=== PATIENT | female | born 1940 | race Caucasian/White ===

== ENCOUNTER 2016-09-18 15:46 | Inpatient (IN) | payer OTHER ==
[~2016-09-18] VITALS: Ht 152.4 cm; Wt 66.3 kg
[2016-09-18 15:59] VITALS: Ht 152.4 cm; Wt 66.3 kg
[2016-09-18] MEDS ORDERED: morphine 4 MG/ML VIAL IV STA (16:30)
[2016-09-18] MEDS ORDERED: NITROGLYCERIN 2% 1 GM OINT PKT TD STA (16:30)
[2016-09-18] MEDS ORDERED: NITROGLYCERIN (SL) 0.4 MG TAB SL PRN (16:30)
[2016-09-18] MEDS ORDERED: ASPIRIN 325 MG TAB PO STA (16:30)
[2016-09-18] MEDS ORDERED: ONDANSETRON 4 MG INJ IV STA (16:30)
[2016-09-18 16:46] LABS: ADD SCAN DIFF NO
[2016-09-18 16:47] LABS: BASOPHILS % 0.4 % (0.0-2.0); EOSINOPHILS # 0.1 10^3/ul (0.0-0.5); EOSINOPHILS % 1.3 % (0.0-7.0); HEMOGLOBIN 15.5 g/dl (12.0-16.0); LYMPHOCYTES # 2.1 10^3/ul (0.8-2.9); LYMPHOCYTES % 23.7 % (15.0-51.0); MEAN CORPUSCULAR HEMOGLOBIN 33.6 pg (29.0-33.0); MEAN PLATELET VOLUME 11.6 fl (7.4-10.4); MONOCYTE # 0.4 10^3/ul (0.3-0.9); MONOCYTES % 4.4 % (0.0-11.0); NEUTROPHIL # 6.3 10^3/ul (1.6-7.5); PLATELET COUNT 161 10^3/UL (140-415); RED BLOOD COUNT 4.61 10^6/ul (4.20-5.40); RED CELL DISTRIBUTION WIDTH 13.6 % (11.5-14.5)
[2016-09-18 17:02] LABS: INR 1.04; PROTIME 13.6 Sec (12.2-14.2); PT RATIO 1.1
[2016-09-18 17:20] LABS: ALBUMIN 4.1 g/dl (3.3-4.9); CHLORIDE 109 mmol/L (97-110); SODIUM 145 mmol/L (135-144)
[2016-09-18 17:21] LABS: POTASSIUM 3.4 mmol/L (3.5-5.1)
[2016-09-18 17:23] LABS: ALANINE AMINOTRANSFERASE 26 IU/L (13-69); ALBUMIN/GLOBULIN RATIO 1.32; ALKALINE PHOSPHATASE 81 IU/L (42-121); ANION GAP 18 (8-16); ASPARTATE AMINO TRANSFERASE 27 IU/L (15-46); BILIRUBIN,INDIRECT 1.4 mg/dl (0-1.1); BILIRUBIN,TOTAL 1.4 mg/dl (0.2-1.3); BLOOD UREA NITROGEN 29 mg/dl (7-20); CARBON DIOXIDE 21 mmol/L (21-31); CREATININE 0.72 mg/dl (0.44-1.00); GLUCOSE 100 mg/dl (70-220); TOTAL PROTEIN 7.2 g/dl (6.1-8.1)
[2016-09-18 17:24] LABS: CALCIUM 9.4 mg/dl (8.4-10.2)
[2016-09-18 17:36] LABS: TROPONIN-I < 0.012 ng/ml (0.00-0.12)
[2016-09-18] MEDS ORDERED: LOSA25TA5 PO (18:02)
[2016-09-18] MEDS ORDERED: METO50TA16 PO (18:02)
[2016-09-18] MEDS ORDERED: APIX2.5T PO (18:03)
[2016-09-18] MEDS ORDERED: ATOR20TA38 PO (18:03)
[2016-09-18] MEDS ORDERED: ASPI-664 PO (18:03)
[2016-09-18] MEDS ORDERED: DIGO250T16 PO (18:04)
--- NOTE | 2016-09-18 19:13 | RADRPT ---
PROCEDURE: Chest x-ray CLINICAL INDICATION: Chest pain TECHNIQUE: Chest single view COMPARISON: None FINDINGS: There is left chest single lead pacemaker. Moderate cardiomegaly and an sclerotic aortic calcificat ion is seen. Mild interstitial CHF is identified. There is small left pleural effusion and linear left lower lobe atelectasis. Bones are diffusely osteopenic. IMPRESSION: 1. Cardiomegaly with mild interstitial CHF and small left pleural effusion. 2. Left lower lobe atelectasis. 3. Atherosclerotic aortic calcification. 4. Pacemaker. 5. Osteopenia RPTAT: HH .Mina Mcghee MD, MD Date Time Electronically viewed and signed by .Mina Mcghee MD, on 09/18/2016 19:12 .W/
[2016-09-18] MEDS ORDERED: DILTIAZEM 25 MG INJ IV ONE (19:30)
[2016-09-18] MEDS ORDERED: DILTIAZEM-D5W 125MG/125ML DRIP 125 ML IV SCH (19:30)
[2016-09-18] MEDS ORDERED: FUROSEMIDE 40 MG INJ IV ONE (20:00)
--- NOTE | 2016-09-18 20:14 | ERA ---
ER Documentation Chief Complaint Date/Time DATE: 09/18/16 TIME: 20:09 Chief Complaint ABD PAIN SINCE THIS AM WITH N/V HPI This is a 76-year-old female who is here with her family. The patient is a very poor historian due to some mild dementia. The daughter at bedside thinks that her mom is having some stomach pain. The patient however says she is having some chest pain and some difficulty breathing. There is been no vomiting diarrhea no fever no cough. Is very difficult to get the patient to answer my questions. She describes the pain as a pressure in her chest but says no radiation ROS All systems reviewed and are negative except as per history of present illness. Medications Home Meds Reported Medications Digoxin* (Digox*) 250 Mcg Tablet, 0.25 MG PO DAILY, TAB 09/18/16 Aspirin* (Aspirin* EC) 81 Mg Tablet.dr, 81 MG PO DAILY, TAB 09/18/16 Apixaban* (Eliquis*) 2.5 Mg Tablet, 2.5 MG PO DAILY, TAB 09/18/16 Atorvastatin Calcium* (Atorvastatin Calcium*) 20 Mg Tablet, 20 MG PO QHS, #30 TAB 09/18/16 Metoprolol Succinate* (Toprol XL*) 50 Mg Tab.er.24h, 50 MG PO DAILY, #30 TAB 09/18/16 Losartan Potassium* (Losartan Potassium*) 25 Mg Tablet, 25 MG PO DAILY, TAB 09/18/16 Allergies Allergies: Coded Allergies: No Known Allergy (Unverified , 09/18/16) PMhx/Soc Medical and Surgical Hx: Unable to obtain Hx Alcohol Use: No Hx Substance Use: No Hx Tobacco Use: No Smoking Status: Never smoker FmHx Family History: No coronary disease Physical Exam Vitals Vital Signs Date Time Temp Pulse Resp B/P Pulse Ox O2 Delivery O2 Flow Rate FiO2 09/18/16 19:25 127 100 100 09/18/16 16:54 Nasal Cannula 2 09/18/16 15:59 95.4 92 18 134/81 95 Physical Exam Const: Well-developed, well-nourished Head: Atraumatic, normocephalic Eyes: Normal Conjunctiva, PERRLA, EOMI, normal sclera, no nystagmus ENT: Normal External Ears, Nose and Mouth, moist mucus membranes. Neck: Full range of motion. No meningismus, no lymphadenopathy. Resp: Clear to auscultation bilaterally, no wheezing, rhonchi, rales Cardio: Irregular rhythm no murmurs, S1 S2 present Abd: Soft, non tender x 4, non distended. Normal bowel sounds, no guarding or rebound, no pulsitile abdominal masses or bruits Skin: No petechiae or rashes, no ecchymosis , no maculopapular rash Back: No midline or flank tenderness Ext: No cyanosis, or edema, FROM x 4, normal inspection, neurovascularly intact x 4 Neur: Awake and alert, seems somewhat confused STR 09/15 x 4, sensation intact x 4, no focal findings, cerebellum intact Psych: Normal Mood and Affect, flat Result Diagram: 09/18/16 1630 09/18/16 1630 Results 24 hrs Laboratory Tests Test 09/18/16 16:10 09/18/16 16:30 B-Type Natriuretic Peptide 6390PG/ML White Blood Count 9.010^3/ul Red Blood Count 4.6110^6/ul Hemoglobin 15.5g/dl Hematocrit 47.0% Mean Corpuscular Volume 102.0fl Mean Corpuscular Hemoglobin 33.6pg Mean Corpuscular Hemoglobin Concent 33.0g/dl Red Cell Distribution Width 13.6% Platelet Count 00034^3/UL Mean Platelet Volume 11.6fl Neutrophils % 70.0% Lymphocytes % 23.7% Monocytes % 4.4% Eosinophils % 1.3% Basophils % 0.4% Nucleated Red Blood Cells % 0.0/100WBC Neutrophils # 6.310^3/ul Lymphocytes # 2.110^3/ul Monocytes # 0.410^3/ul Eosinophils # 0.110^3/ul Basophils # 0.010^3/ul Nucleated Red Blood Cells # 0.010^3/ul Prothrombin Time 13.6Sec Prothrombin Time Ratio 1.1 INR International Normalized Ratio 1.04 Activated Partial Thromboplast Time 32.0Sec Sodium Level 145mmol/L Potassium Level 3.4mmol/L Chloride Level 109mmol/L Carbon Dioxide Level 21mmol/L Anion Gap 18 Blood Urea Nitrogen 29mg/dl Creatinine 0.72mg/dl Glucose Level 100mg/dl Calcium Level 9.4mg/dl Total Bilirubin 1.4mg/dl Direct Bilirubin 0.00mg/dl Indirect Bilirubin 1.4mg/dl Aspartate Amino Transf (AST/SGOT) 27IU/L Alanine Aminotransferase (ALT/SGPT) 26IU/L Alkaline Phosphatase 81IU/L Troponin I < 0.012ng/ml Total Protein 7.2g/dl Albumin 4.1g/dl Globulin 3.10g/dl Albumin/Globulin Ratio 1.32 Current Medications Medications (Trade) Dose Ordered Sig/Christoph Route PRN Reason Start Time Stop Time Status Last Admin Dose Admin Aspirin (Aspirin) 325 mg ONCE STAT PO 09/18/16 16:30 09/18/16 16:32 DC 09/18/16 16:45 Nitroglycerin (Nitroglycerin 2% Oint) 1 inch ONCE STAT TD 09/18/16 16:30 09/18/16 16:32 DC 09/18/16 16:46 Nitroglycerin (Nitroglycerin (Sl Tab) 0.4 Mg) 1 tab Q5M UP TO 3 DOSES PRN SL CHEST PAIN 09/18/16 16:30 Morphine Sulfate (morphine) 4 mg ONCE STAT IV 09/18/16 16:30 09/18/16 16:32 DC 09/18/16 16:46 Ondansetron HCl (Zofran Inj) 4 mg ONCE STAT IV 09/18/16 16:30 09/18/16 16:32 DC 09/18/16 16:43 Diltiazem HCl 20 mg 20 mg ONCE ONCE IV 09/18/16 19:30 09/18/16 19:31 DC 09/18/16 19:29 Diltiazem HCl (Cardizem-D5W 125 Mg/125 ml Drip) 125 ml @ 0 mls/hr Q0M IV 09/18/16 19:30 09/18/16 20:01 Furosemide (Lasix) 40 mg ONCE ONCE IV 09/18/16 20:00 09/18/16 20:01 DC 09/18/16 19:59 Procedures/MDM ROCEDURE: Chest x-ray CLINICAL INDICATION: Chest pain TECHNIQUE: Chest single view COMPARISON: None FINDINGS: There is left chest single lead pacemaker. Moderate cardiomegaly and an sclerotic aortic calcification is seen. Mild interstitial CHF is identified. There is small left pleural effusion and linear left lower lobe atelectasis. Bones are diffusely osteopenic. IMPRESSION: 1. Cardiomegaly with mild interstitial CHF and small left pleural effusion. 2. Left lower lobe atelectasis. 3. Atherosclerotic aortic calcification. 4. Pacemaker. 5. Osteopenia RPTAT: HH .Mina Mcghee MD, Date Time Electronically viewed and signed by .Mina Mcghee MD, on 09/18/2016 19:12 .W/ CC: REHAN RICO DO The nurse came to get me to the patient's having a difficult time breathing. Went to the room the patient was in atrial fib with RVR with a heart rate of 145 and having some difficult respirations. Lung sounds now sounded very coarse and wet. I called RT and we put her on BiPAP at 15/5 She is given a Cardizem bolus 20 mg and followed by drip. Heart rate went from 145 down to 80 Vital signs are currently stable Chest x-ray shows volume overload with an elevated BNP on her lab work. She is given Lasix IV per We will admit the patient for A. fib with RVR and congestive heart failure Critical Care Time: 35 minutes Treatments/Evaluations: Close monitoring and treatment of unstable vital signs, cardiorespiratory, and neurologic status, while maintaining tight balance of fluid, respiratory, and cardiac interventions. This time includes discussing the case with the patient and the patient's family. This time does not include all procedures stated elsewhere in this record. This time also includes reviewing old records, labs and radiological studies. This time includes examining and re-examining the patient. Additionally, this time also includes arranging care with admitting and consulting physicians. EKG: Rate/Rhythm: Atrial fibrillation with rapid ventricular response heart rate 139, inverted T waves laterally QRS, ST, QT: NORMAL AR, QRS, QT] Impression: A. fib with RVR Departure Diagnosis: Primary Impression: Atrial fibrillation with RVR Additional Impression: Congestive heart failure Qualified Code: I50.9 - Acute congestive heart failure, unspecified congestive heart failure type Condition: Fair REHAN RICO DO September 18, 2016 20:14
[2016-09-18] MEDS ORDERED: ONDANSETRON 4 MG INJ IV PRN (20:30)
[2016-09-18] MEDS ORDERED: ACETAMINOPHEN 325 MG TAB PO PRN (20:30)
[2016-09-18] MEDS ORDERED: LORAZEPAM 2 MG INJ IV ONE ×2 (22:00)
[2016-09-19] VITALS (14 sets, daily range): BP systolic 103–181; BP diastolic 52–107; PULSE 22–128; RESP 16–28
[2016-09-19] MEDS ORDERED: ONDANSETRON 4 MG INJ IV PRN (01:30)
[2016-09-19] MEDS ORDERED: FUROSEMIDE 40 MG INJ IV ONE (02:30)
[2016-09-19 03:52] LABS: ADD SCAN DIFF NO
[2016-09-19 04:19] LABS: ALBUMIN 3.9 g/dl (3.3-4.9); ALBUMIN/GLOBULIN RATIO 1.25; BILIRUBIN,INDIRECT 1.5 mg/dl (0-1.1); BILIRUBIN,TOTAL 1.5 mg/dl (0.2-1.3); CALCIUM 9.2 mg/dl (8.4-10.2); CHOL/HDL RATIO 2.4 RATIO; CREATININE 0.92 mg/dl (0.44-1.00); MAGNESIUM 1.9 mg/dl (1.7-2.5); PHOSPHORUS 5.7 mg/dl (2.5-4.9); POTASSIUM 3.7 mmol/L (3.5-5.1)
--- NOTE | 2016-09-19 04:40 | HP ---
Date/Time of Note Date/Time of Note DATE: 09/19/16 TIME: 04:17 Assessment/Plan VTE Prophylaxis VTE Prophylaxis Intervention: heparin Lines/Catheters IV Catheter Type (from Nrsg): Peripheral IV Assessment/Plan Assessment/Plan 1. Afib with RVR - cont Cardizem gtt. Pt is currently lethargic and as such unable to take oral meds. Will have Speech/swallow eval in am - will resume home meds, including Eliquis, aspirin and Beta-lennox when pt able to take oral meds. if not, will place her on Lovenox, treatment dose - Will obtain 2D-echo and place a Cardiology consult 2. Chest pain - first trop neg and EKG with no ST-T wave abnormalities - will trend trops - pt was given aspirin in ER. - See above 3. Mild CHF - obtain 2D-echo - IV Lasix - Cardiology consult 4. HTN: BP within goal - cont cardizem gtt for Afib, which will also address BP 5. ?AMS - pt with likely Dementia. Will speak with family in am to determine pt's baseline mental status - will obtain CT head as needed - Physical therapy given lethargy 6. Mild Hypernatremia - monitor for now 7. Mild Hypokalemia - replete HPI/ROS Admit Date/Time Admit Date/Time September 18, 2016 at 20:17 Hx of Present Illness Patient is a 76-year-old female with hx of HTN, pacemaker and likely Afib and dementia who was brought in by family for abdominal pain and generalized weakness. Patient is a very poor historian ans such such information is mainly gathered from ER physician. Per daughter, pt was c/o abd pain, but reportedly, pt c/o pressure-like chest pain when she was in ER. She is currently lethargic and unable to give meaningful history. While in ER, pt was found to be in Afib and was given 20mg of IV Cardizem and then was started on Cardizem gtt. she also received Ativan. Lab showed Na 145, K 3.4, BUN 29 with cr of 0.7. BMP 6400 and first trop was neg. CXR showed Cardiomegaly with mild interstitial CHF and small left pleural effusion and left lower lobe atelectasis. Patient was placed on Bipap, but has been removing it. . PMH/Family/Social Past Medical History Medical History: hypertension, other (likely afib and mild dementia) Past Surgical History Past Surgical Hx: other (pacemaker placement) Social History Alcohol Use: other (unknown) Smoking Status: Unknown if ever smoked Drug Use: other (unknown) Exam/Review of Systems Vital Signs Vitals Vital Signs Date Time Temp Pulse Resp B/P Pulse Ox O2 Delivery O2 Flow Rate FiO2 09/19/16 03:49 98.1 100 23 115/58 94 09/18/16 22:57 Nasal Cannula 5.0 09/18/16 19:25 100 Exam Constitutional: other (not oriented, lethargic) Head: atraumatic, normocephalic Eyes: PERRL Respiratory: other (minimal crackles anteriorly) Cardiovascular: irregular rhythm Gastrointestinal: other (non-distended, positive bowel sound), soft Extremities: normal pulses Labs Result Diagram: 09/18/16 1630 09/18/16 1630 Medications Medications Current Medications Aspirin (Halfprin) 81 mg DAILY PO ; Start 09/19/16 at 09:00 Atorvastatin Calcium (Lipitor) 20 mg QHS PO ; Start 09/19/16 at 21:00 Digoxin (Digoxin) 0.25 mg DAILY@13 PO ; Start 09/19/16 at 13:00 Losartan Potassium (Cozaar) 25 mg DAILY PO ; Start 09/19/16 at 09:00 Metoprolol Succinate (Toprol Xl) 50 mg DAILY PO ; Start 09/19/16 at 09:00 Apixaban 2.5 mg 2.5 mg DAILY PO ; Start 09/19/16 at 09:00 Diltiazem HCl (Cardizem-D5W 125 Mg/125 ml Drip) 125 ml @ 0 mls/hr Q0M IV ; Start 09/19/16 at 01:30 Ondansetron HCl (Zofran Inj) 4 mg Q6H PRN IV NAUSEA AND/OR VOMITING; Start 09/19 at 01:30 Heparin Sodium (Porcine) (Heparin (5000 Units/0.5 ml)) 5,000 unit Q12 SC ; Start 09/19/16 at 09:00; Status CANDIE EUGENE MD September 19, 2016 04:29
[2016-09-19 04:48] LABS: THYROID STIMULATING HORMONE 4.07 MIU/L (0.465-4.680)
[2016-09-19 06:20] LABS: ABNORMAL IP MESSAGE 1; BASOPHILS % 0.1 % (0.0-2.0); HEMATOCRIT 45.1 % (37.0-47.0); HEMOGLOBIN 14.8 g/dl (12.0-16.0); LYMPHOCYTES # 0.4 10^3/ul (0.8-2.9); MEAN CORPUSCULAR HGB CONC 32.8 g/dl (32.0-37.0); MEAN CORPUSCULAR VOLUME 100.7 fl (82.0-101.0); MEAN PLATELET VOLUME 12.2 fl (7.4-10.4); MONOCYTE # 0.7 10^3/ul (0.3-0.9); MONOCYTES % 3.7 % (0.0-11.0); NEUTROPHIL # 16.8 10^3/ul (1.6-7.5); NEUTROPHILS % 93.8 % (39.0-77.0); PLATELET COUNT 149 10^3/UL (140-415); RED BLOOD COUNT 4.48 10^6/ul (4.20-5.40); RED CELL DISTRIBUTION WIDTH 13.6 % (11.5-14.5); WHITE BLOOD COUNT 17.9 10^3/ul (4.8-10.8)
[2016-09-19] MEDS: DILTIAZEM-D5W 125MG/125ML DRIP 125 ML IV SCH ×2 (06:24→16:21)
[2016-09-19] MEDS ORDERED: APIXABAN 5 MG TABLET PO SCH ×2 (09:00)
[2016-09-19] MEDS ORDERED: LOSARTAN 25 MG TAB PO SCH (09:00)
[2016-09-19] MEDS ORDERED: METOPROLOL (XL) 50 MG TAB PO SCH (09:00)
[2016-09-19] MEDS ORDERED: HEPARIN 5,000 UNIT/0.5 ML VIAL SC SCH (09:00)
[2016-09-19] MEDS ORDERED: ASPIRIN (EC) 81 MG TAB PO SCH (09:00)
[2016-09-19] MEDS ORDERED: LIDOCAINE 1% (MPF) 5 ML VIAL SC ONE ×2 (11:30→13:00)
[2016-09-19] MEDS ORDERED: SOD CHLORIDE 0.9% 250 ML IV ONE (11:30)
[2016-09-19] MEDS ORDERED: HALOPERIDOL 5 MG INJ IM ONE (11:30)
--- NOTE | 2016-09-19 11:32 | PN ---
Date/Time of Note Date/Time of Note DATE: 09/19/16 TIME: 11:20 Assessment/Plan VTE Prophylaxis VTE Prophylaxis Intervention: LMWH Lines/Catheters IV Catheter Type (from Nrs): Peripheral IV Urinary Cath still in place: Yes Reason Cath still needed: urinary retention Assessment/Plan Chief Complaint/Hosp Course S: Events noted. Dehydrated, poor IV access, agitated. I spoke with Carmen ( patient's daughter) w therapist occupational assistance and she agrees to picc. O: A fib RVR rt fairly stable at present. PE No pallor JVD adenopathy Irregular, no murmur rub gallop Diminished breath sounds bilaterally BS + nt nd, no r/r/g No edema A/P 1. A. fib w RVR. Rt control/ ivf/Lovenox. Stable, mod stable. 2. Dementia w delirium 3. False positive trop; due to demand ischemia. Ro ACS-medical management. 4. Pacemaker status 5. Hypertension 6. Deconditioning 7. Hypovolemia/ dehydration 8. Dysphagia. Will try to avoid feeding tubes as it will not provide any benefit of quality of life. Problems: Exam/Review of Systems Vital Signs Vitals Vital Signs Date Time Temp Pulse Resp B/P Pulse Ox O2 Delivery O2 Flow Rate FiO2 09/19/16 08:44 85 09/19/16 08:22 2.0 09/19/16 08:17 98.6 16 110/55 93 09/19/16 02:00 Nasal Cannula 09/18/16 19:25 100 Intake and Output 09/18/16 09/18/16 09/19/16 15:00 23:00 07:00 Intake Total 50 ml Output Total 700 ml Balance -650 ml Results Result Diagram: 09/19/16 0527 09/19/16 0330 Results 24 hrs Laboratory Tests Test 09/18/16 16:10 09/18/16 16:30 09/19/16 03:30 09/19/16 05:27 B-Type Natriuretic Peptide 6390 H White Blood Count 9.0 17.9 #H Red Blood Count 4.61 4.48 Hemoglobin 15.5 14.8 Hematocrit 47.0 45.1 Mean Corpuscular Volume 102.0 H 100.7 Mean Corpuscular Hemoglobin 33.6 H 33.0 Mean Corpuscular Hemoglobin Concent 33.0 32.8 Red Cell Distribution Width 13.6 13.6 Platelet Count 161 149 Mean Platelet Volume 11.6 H 12.2 H Neutrophils % 70.0 93.8 H Lymphocytes % 23.7 2.0 L Monocytes % 4.4 3.7 Eosinophils % 1.3 0.0 Basophils % 0.4 0.1 Nucleated Red Blood Cells % 0.0 0.0 Neutrophils # 6.3 16.8 H Lymphocytes # 2.1 0.4 L Monocytes # 0.4 0.7 Eosinophils # 0.1 0.0 Basophils # 0.0 0.0 Nucleated Red Blood Cells # 0.0 0.0 Prothrombin Time 13.6 Prothrombin Time Ratio 1.1 INR International Normalized Ratio 1.04 Activated Partial Thromboplast Time 32.0 Sodium Level 145 H 143 Potassium Level 3.4 L 3.7 Chloride Level 109 113 H Carbon Dioxide Level 21 15 L Anion Gap 18 H 19 H Blood Urea Nitrogen 29 H 33 H Creatinine 0.72 0.92 Glucose Level 100 201 # Calcium Level 9.4 9.2 Total Bilirubin 1.4 H 1.5 H Direct Bilirubin 0.00 0.00 Indirect Bilirubin 1.4 H 1.5 H Aspartate Amino Transf (AST/SGOT) 27 44 Alanine Aminotransferase (ALT/SGPT) 26 25 Alkaline Phosphatase 81 87 Troponin I < 0.012 0.123 *H Total Protein 7.2 7.0 Albumin 4.1 3.9 Globulin 3.10 3.10 Albumin/Globulin Ratio 1.32 1.25 Phosphorus Level 5.7 H Magnesium Level 1.9 Triglycerides Level 111 Cholesterol Level 131 LDL Cholesterol, Calculated 56 HDL Cholesterol 53 Cholesterol/HDL Ratio 2.4 Thyroid Stimulating Hormone (TSH) 4.070 Hemoglobin A1c 5.4 Medications Medications Current Medications Aspirin (Halfprin) 81 mg DAILY PO ; Start 09/19/16 at 09:00 Atorvastatin Calcium (Lipitor) 20 mg QHS PO ; Start 09/19/16 at 21:00 Digoxin (Digoxin) 0.25 mg DAILY@13 PO ; Start 09/19/16 at 13:00 Losartan Potassium (Cozaar) 25 mg DAILY PO ; Start 09/19/16 at 09:00 Metoprolol Succinate (Toprol Xl) 50 mg DAILY PO ; Start 09/19/16 at 09:00 Apixaban 2.5 mg 2.5 mg DAILY PO ; Start 09/19/16 at 09:00; Status Future Hold Diltiazem HCl (Cardizem-D5W 125 Mg/125 ml Drip) 125 ml @ 0 mls/hr Q0M IV ; Start 09/19/16 at 01:30 Ondansetron HCl (Zofran Inj) 4 mg Q6H PRN IV NAUSEA AND/OR VOMITING; Start 09/19 at 01:30 Heparin Sodium (Porcine) (Heparin (5000 Units/0.5 ml)) 5,000 unit Q12 SC ; Start 09/19/16 at 09:00; Status Future Hold Lorazepam (Ativan) 0.5 mg Q6H PRN IV ANXIETY; Start 09/19/16 at 11:00 Haloperidol (Haldol) 5 mg ONCE ONCE IM ; Start 09/19/16 at 11:30; Stop 09/19/16 at 11:31; Status UNV Lidocaine (Xylocaine 1% (Mpf)) 5 ml ONCE ONCE SC ; Start 09/19/16 at 11:30; Stop 09/19/16 at 11:31; Status UNV BRIGIDA KELLY MD September 19, 2016 11:30
[2016-09-19] MEDS ORDERED: ENOXAPARIN 100 MG/ML SYG SC SCH (12:00)
[2016-09-19] MEDS ORDERED: FAMOTIDINE 20 MG TAB PO SCH (12:00)
[2016-09-19] MEDS ORDERED: ENOXAPARIN 80 MG/0.8 ML SYG SC SCH (12:39)
[2016-09-19] MEDS ORDERED: DIGOXIN 0.25 MG TAB PO SCH (13:00)
[2016-09-19] MEDS ORDERED: LORAZEPAM 2 MG INJ IM ONE (14:00)
--- NOTE | 2016-09-19 15:45 | RADRPT ---
PROCEDURE: US guidance for PICC line CLINICAL INDICATION: PICC line placement TECHNIQUE: Multiple real-time images were acquired of the patient's arm utilizing a high resolutio n transducer. This was performed by the PICC line nurse for venous access. COMPARISON: None FINDINGS: Ultrasound guidance for PICC line placement. IMPRESSION: Ultrasound guidance for PICC line placement. RPTAT: AA .Lawrence Patrick MD, MD Date Time Electronically viewed and signed by .Lawrence Patrick MD, on 09/19/2016 15:45 .S/
[2016-09-19] MEDS: SOD CHLORIDE 0.9% 1,000 ML IV SCH (16:37)
--- NOTE | 2016-09-19 18:05 | RADRPT ---
Echocardiogram Report Patient Name: MELINA ROMEO Gender: Female Date: 1940 Study Date: 19-Sep-2016 Consulting Technical Director: Glory Kendrick [facility] Location: [id number] Ref. Physician: CANDIE FAROOQ Quality: Adequate Procedures: Transthoracic echocardiogram with complete 2D, M-Mode, and doppler examination. Indications: Atrial Fibrillation. 2D/M Mode Doppler Measurement Value Normal Ranges Measurement Value Normal Ranges LVIDd 2D 5.9 3.5 - 5.6 cm AV Peak Aneesh 1.7 m/sec LVIDs 2D 4.9 2.1 - 4.1 cm AV Peak PG 11.0 mmHg FS 2D 17.4 % AI Peak PG 47.0 mmHg LVPWd 2D 0.9 0.6 - 1.1 cm AI Peak Aneesh 3.4 m/sec IVSd 2D 0.9 0.6 - 1.1 cm AI PHT 475.0 msec IVS/LVPW 2D 1.1 LVOT Peak Aneesh 1.3 m/sec AoR Diam 2D 3.6 2.0 - 3.7 cm LVOT Peak PG 7.0 mmHg LA/Ao 2D 1 0 - 1 MV E Peak Aneesh 1.1 m/sec EDV 2D 209.0 cm3 MV Decel Time 102 msec ESV 2D 118.0 cm3 TR Peak Aneesh 3.5 m/sec LA Dimen 2D 4.4 2.3 - 4.0 cm TR Peak PG 49.0 mmHg RVSP 64.0 mmHg Findings Left Ventricle: Normal left ventricular cavity size. Mild enlargement of left ventricle cavity. Severe global left ventricular systolic dysfunction. Ejection fraction is visually estimated at 2530 %. Right Ventricle: Normal right ventricular size. Normal right ventricular systolic function. Left Atrium: There is moderate enlargement of left atrium. Right Atrium: The right atrium is normal in size. Mitral Valve: Mitral valve leaflets appear mildly thickened. Mild mitral annular calcification. Moderate to severe mitral valve regurgitation. The regurgitation jet is eccentrically directed which may underestimate the severity of mitral regurgitation. Aortic Valve: No hemodynamically significant aortic stenosis by doppler. Aortic cusps appear mildly calcified. Moderate aortic valve regurgitation. Tricuspid Valve: Normal appearance of the tricuspid valve. Estimated peak PA systolic pressure 64 mmHg. There is mild tricuspid regurgitation. Pulmonic Valve: Normal pulmonic valve appearance. There is trace pulmonic regurgitation. Pericardium: Trivial pericardial effusion. Left pleural effusion seen. Aorta: Normal aortic root. IVC: Dilated IVC without respiratory collapse consistent with elevated right atrial pressure. Conclusions 1.The left ventriclar cavity is mildly dilated. The left ventricular systolic function is severely reduced. 2.Estimated left ventricular ejection fraction of 25-30%. 3.Moderate to severe mitral regurgitation. 4.Moderate aortic regurgitation. 5.Moderate left atrial enlargement. 6.Pulmonary hypertension with estimated RVSP of 64 mmHg. Electronically Signed By: Arthur Coffey 19-Sep-2016 18:05:10 -0700 Patient Name: MELINA ROMEO Study Date: 19-Sep-2016 [id number]
--- NOTE | 2016-09-19 20:07 | CONS ---
Date/Time of Note Date/Time of Note DATE: 09/19/16 TIME: 19:47 Assessment/Plan Assessment/Plan Chief Complaint/Hosp Course Assessment: Atrial fibrillation (likely chronic) with rapid ventricular response Single-chamber permanent pacemaker - incomplete data Acute on likely chronic systolic heart failure Cardiomyopathy, LVEF 25-30% - ischemic vs valvular vs tachycardia-induced Valvular heart disease - moderate to severe mitral regurgitation, moderate aortic regurgitation NSTEMI - likely type 2, conservative management Hypertension History of stroke Acute on chronic encephalopathy Leukocytosis - rule out infection Recommendations: -echocardiogram showed LVEF 25-30%, moderate to severe MR, moderate AR, moderate LAE, RVSP 64 mmHg -patient currently unable to tolerate oral medications due to altered mental status -continue diltiazem drip -digoxin 0.25mg IV daily, check digoxin level -can decrease Lovenox to DVT prophylaxis dose for now, resume on Eliquis when tolerating orals -Lasix 40mg IV daily Problems: Consultation Date/Type/Reason Admit Date/Time September 18, 2016 at 20:17 Type of Consultation: Cardiology Reason for Consultation atrial fibrillation with rapid ventricular response Hx of Present Illness The patient is a 76 year-old female who presents with abdominal pain, generalized weakness, and confusion. She is unable to provide any meaningful history due to her altered mental status. She is noted to be in atrial fibrillation with a rapid ventricular response and decompensated heart failure. Her troponin is mildly elevated up to 0.152. She has been placed on a diltiazem drip. Unable to obtain review of systems due to patient's altered mental status. Past Medical History Atrial fibrillation Single-chamber permanent pacemaker Hypertension History of stroke Incomplete data Past Surgical History Unknown Family History Significant Family History: other (unknown) Social History Unknown Exam/Review of Systems Vital Signs Vitals Vital Signs Date Time Temp Pulse Resp B/P Pulse Ox O2 Delivery O2 Flow Rate FiO2 09/19/16 17:49 128 09/19/16 15:54 99.3 16 181/107 93 09/19/16 08:22 2.0 09/19/16 08:00 Nasal Cannula 09/18/16 19:25 100 Intake and Output 09/18/16 09/18/16 09/19/16 14:59 22:59 06:59 Intake Total 50 ml Output Total 700 ml Balance -650 ml Exam Constitutional: non-verbal, No alert, No oriented Psych: confusion, No nl mood/affect, No no complaints Head: atraumatic, normocephalic Eyes: nl conjunctiva, nl lids ENMT: nl external ears & nose, nl nasal mucosa & septum Neck: jvd, non-tender, supple Respiratory: crackles/rales, No wheezing Cardiovascular: irregular rhythm Gastrointestinal: soft, tender Musculoskeletal: nl extremities to inspection Extremities: No clubbing, No cyanosis, No edema Neurological: No nl mental status, No nl speech Results Result Diagram: 09/19/16 0527 09/19/16 0330 Results 24 hrs Laboratory Tests Test 09/19/16 03:30 09/19/16 05:27 09/19/16 11:20 09/19/16 15:40 Sodium Level 143 Potassium Level 3.7 Chloride Level 113 H Carbon Dioxide Level 15 L Anion Gap 19 H Blood Urea Nitrogen 33 H Creatinine 0.92 Glucose Level 201 # Calcium Level 9.2 Phosphorus Level 5.7 H Magnesium Level 1.9 Total Bilirubin 1.5 H Direct Bilirubin 0.00 Indirect Bilirubin 1.5 H Aspartate Amino Transf (AST/SGOT) 44 Alanine Aminotransferase (ALT/SGPT) 25 Alkaline Phosphatase 87 Troponin I 0.123 *H 0.152 *H Total Protein 7.0 Albumin 3.9 Globulin 3.10 Albumin/Globulin Ratio 1.25 Triglycerides Level 111 Cholesterol Level 131 LDL Cholesterol, Calculated 56 HDL Cholesterol 53 Cholesterol/HDL Ratio 2.4 Thyroid Stimulating Hormone (TSH) 4.070 White Blood Count 17.9 #H Red Blood Count 4.48 Hemoglobin 14.8 Hematocrit 45.1 Mean Corpuscular Volume 100.7 Mean Corpuscular Hemoglobin 33.0 Mean Corpuscular Hemoglobin Concent 32.8 Red Cell Distribution Width 13.6 Platelet Count 149 Mean Platelet Volume 12.2 H Neutrophils % 93.8 H Lymphocytes % 2.0 L Monocytes % 3.7 Eosinophils % 0.0 Basophils % 0.1 Nucleated Red Blood Cells % 0.0 Neutrophils # 16.8 H Lymphocytes # 0.4 L Monocytes # 0.7 Eosinophils # 0.0 Basophils # 0.0 Nucleated Red Blood Cells # 0.0 Hemoglobin A1c 5.4 Bedside Glucose 134 Medications Medications Current Medications Atorvastatin Calcium (Lipitor) 20 mg QHS PO ; Start 09/19/16 at 21:00 Metoprolol Succinate (Toprol Xl) 50 mg DAILY PO ; Start 09/19/16 at 09:00 Apixaban 2.5 mg 2.5 mg DAILY PO ; Start 09/19/16 at 09:00; Status Future Hold Diltiazem HCl (Cardizem-D5W 125 Mg/125 ml Drip) 125 ml @ 0 mls/hr Q0M IV Last administered on 09/19/16 16:21; Admin Dose 15 MLS/HR; Start 09/19/16 at 01:30 Ondansetron HCl (Zofran Inj) 4 mg Q6H PRN IV NAUSEA AND/OR VOMITING; Start 09/19 at 01:30 Lorazepam (Ativan) 0.5 mg Q6H PRN IV ANXIETY; Start 09/19/16 at 11:00 Enoxaparin Sodium (Lovenox) 65 mg Q12 SC ; Start 09/19/16 at 12:39 Famotidine 20 mg 20 mg DAILY PO ; Start 09/20/16 at 12:00 Sodium Chloride (NS) 1,000 ml @ 75 mls/hr [id number] IV Last administered on 16:37; Admin Dose 75 MLS/HR; Start 09/19/16 at 16:30 MAKI WARE MD September 19, 2016 19:59
[2016-09-19] MEDS ORDERED: hydrALAzine 20 MG INJ IV PRN (20:30)
[2016-09-19] MEDS: DIGOXIN 500 MCG INJ IV SCH (20:47)
[2016-09-19] MEDS: FUROSEMIDE 40 MG INJ IV SCH (20:48)
[2016-09-19] MEDS ORDERED: ATORVASTATIN 20 MG TAB PO SCH (21:00)
[2016-09-19 21:51] LABS: ADD UMIC YES; URINE BILIRUBIN (Dip) NEGATIVE (NEGATIVE); URINE BLOOD (Dip) 3+ (NEGATIVE); URINE COLOR LT. YELLOW (YELLOW); URINE GLUCOSE (Dip) NEGATIVE (NEGATIVE); URINE KETONES (Dip) NEGATIVE (NEGATIVE); URINE LEUKOCYTE ESTERASE (Dip) 1+ (NEGATIVE); URINE NITRITE (Dip) NEGATIVE (NEGATIVE); URINE TOTAL PROTEIN (Dip) TRACE (NEGATIVE); URINE UROBILINOGEN (Dip) 0.2 E.U./dL (0.1-1.0)
[2016-09-19 22:09] LABS: BACTERIA,URINE MANY; SQUAMOUS EPITHELIAL CELL,UR MODERATE
[2016-09-20] VITALS (51 sets, daily range): BP systolic 46–159; BP diastolic 15–137; PULSE 68–114; RESP 14–38
[2016-09-20] MEDS: DILTIAZEM-D5W 125MG/125ML DRIP 125 ML IV SCH ×2 (00:38→11:36)
[2016-09-20] MEDS: LORAZEPAM 2 MG INJ IV PRN ×2 (03:20→17:58)
[2016-09-20] MEDS: SOD CHLORIDE 0.9% 1,000 ML IV SCH (05:33)
[2016-09-20 07:36] LABS: ADD SCAN DIFF NO
[2016-09-20 07:50] LABS: ABNORMAL IP MESSAGE 1; BASOPHILS % 0.2 % (0.0-2.0); HEMATOCRIT 45.8 % (37.0-47.0); HEMOGLOBIN 15.1 g/dl (12.0-16.0); LYMPHOCYTES # 0.4 10^3/ul (0.8-2.9); LYMPHOCYTES % 6.4 % (15.0-51.0); MEAN CORPUSCULAR HEMOGLOBIN 33.3 pg (29.0-33.0); MEAN CORPUSCULAR VOLUME 101.1 fl (82.0-101.0); MEAN PLATELET VOLUME 12.2 fl (7.4-10.4); MONOCYTE # 0.4 10^3/ul (0.3-0.9); MONOCYTES % 6.2 % (0.0-11.0); NEUTROPHIL # 4.9 10^3/ul (1.6-7.5); NEUTROPHILS % 86.8 % (39.0-77.0); PLATELET COUNT 113 10^3/UL (140-415); RED BLOOD COUNT 4.53 10^6/ul (4.20-5.40); RED CELL DISTRIBUTION WIDTH 14.1 % (11.5-14.5); WHITE BLOOD COUNT 5.6 10^3/ul (4.8-10.8)
[2016-09-20 08:02] LABS: ALBUMIN 3.1 g/dl (3.3-4.9); ALBUMIN/GLOBULIN RATIO 1.06; BILIRUBIN,INDIRECT 2.5 mg/dl (0-1.1); BILIRUBIN,TOTAL 2.5 mg/dl (0.2-1.3); CALCIUM 8.7 mg/dl (8.4-10.2); CREATININE 1.22 mg/dl (0.44-1.00); MAGNESIUM 1.9 mg/dl (1.7-2.5); PHOSPHORUS 4.1 mg/dl (2.5-4.9); POTASSIUM 3.8 mmol/L (3.5-5.1)
[2016-09-20 08:14] LABS: TROPONIN-I 0.23 ng/ml (0.00-0.12)
[2016-09-20 08:31] LABS: THYROID STIMULATING HORMONE 4.97 MIU/L (0.465-4.680)
[2016-09-20] MEDS ORDERED: ENOXAPARIN 40 MG/0.4 ML SYG SC SCH (09:00)
--- NOTE | 2016-09-20 09:37 | RADRPT ---
PROCEDURE: XR Chest AP portable CLINICAL INDICATION: Possible pneumonia TECHNIQUE: An AP portable radiograph of the chest was submitted. COMPARISON: 09/18/2016 FINDINGS: Support Hardware: None Cardiovascular: A permanent pacemaker and a bipolar liter stable in positioning. The heart remains moderately enlarged with left atrial predominance. The aorta appears atherosclerotic while the delia pheral pulmonary vasculature is upper normal. Lung Lilly: Increasing atelectasis and possibly infiltrate projects to the heart with in the left l ower lobe and increasing discoid atelectasis is seen at the right lung base. Pleural Spaces: The left costophrenic angle is obscured such that a small pleural fluid accumulation . Can not be excluded. No pneumothorax is evident. Osseous Structures: The suboptimally visualized osseous elements are grossly intact. Soft Tissues: The soft tissues appear unremarkable. IMPRESSION: 1. The permanent pacemaker and bipolar liter stable in positioning and there is again moderate card iomegaly with increasing prominence of the left atrium. Aorta is atherosclerotic and the pulmonary vasculature is upper normal. 2. Worsening atelectasis and possibly infiltrate within the left lower lobe with increasing discoid atelectasis at the right lung base. 3. A small left pleural fluid accumulation can again not be excluded. Physician Karla Date Time Electronically viewed and signed by Physician Karla on 09/20/2016 09:36 /
[2016-09-20] MEDS: FUROSEMIDE 40 MG INJ IV SCH (10:18)
[2016-09-20] MEDS ORDERED: LEVALBUTEROL (NEB) 1.25 MG/0.5 ML AMP HHN PRN (12:00)
[2016-09-20] MEDS ORDERED: FAMOTIDINE 20 MG TAB PO SCH (12:00)
[2016-09-20 13:33] LABS: AADO2 Arterial 590.3 mmHg (7.0-24.0); Allen Test ACCEPTAB; Arterial Base Excess -9.8 mmol/L (-3.0-3); Arterial COHb 0.3 % (0.0-3.0); Arterial Fraction of Oxyhgb 96.8 % (93.0-99.0); Arterial HCO3 12.3 mmol/L (22.0-26.0); Arterial MetHb 0.3 % (0.0-1.5); Arterial Total Hemglobin 15.7 g/dl (12.0-18.0); MODE MASK - NRB
--- NOTE | 2016-09-20 14:02 | PN ---
Date/Time of Note Date/Time of Note DATE: 09/20/16 TIME: 13:56 Assessment/Plan VTE Prophylaxis VTE Prophylaxis Intervention: LMWH Lines/Catheters IV Catheter Type (from Nrsg): Peripheral IV Urinary Cath still in place: Yes Reason Cath still needed: urinary retention, terminal illness/intractable pain Assessment/Plan Chief Complaint/Hosp Course S: Events noted. Dehydrated, poor IV access, agitated. I spoke with Carmen ( patient's daughter) w life claims examiner assistance and she agrees to picc. 09/20 events noted. Agitated, fighting with nursing staff. Required Ativan at 3 AM. This late afternoon lethargic/obtunded. Bp low. Cardizem drip stopped. She is presently arousable/ mumbling and moaning ~at her baseline, no family at bedside. Concerning her right arm weakness as well. O: A fib RVR rt fairly stable at present. low sbp PE No pallor JVD adenopathy droop Irregular, no murmur rub gallop Diminished breath sounds bilaterally BS + nt nd, no r/r/g No edema; cool limbs Neuro: Nonfocal present A/P 1. A. fib w RVR. Rt control/ ivf/Lovenox. Stable, mod stable. 2. Dementia w delirium 3. False positive trop; due to demand ischemia. Ro ACS-medical management. 4. Pacemaker status 5. Htn 6. Deconditioning 7. Hypovolemia/ dehydration 8. Dysphagia. Will try to avoid feeding tubes as it will not provide any benefit of quality of life. 9. Acute encephalopathy. Try fluids/ fix blood pressure. 10. Cardiomyopathy ischemic. EF=25. Poor prognosis. Consult palliative care talk to speak with family later. 11. Hypoxia/ CHF. Treat heart rate. 11. Left deficits? MRI when stable. Problems: Exam/Review of Systems Vital Signs Vitals Vital Signs Date Time Temp Pulse Resp B/P Pulse Ox O2 Delivery O2 Flow Rate FiO2 09/20/16 12:34 56 34 95 Nasal Cannula 6.0 09/20/16 11:51 99.4 99/58 09/18/16 19:25 100 Intake and Output 09/19/16 09/19/16 09/20/16 15:00 23:00 07:00 Intake Total 1200 ml Output Total 750 ml 500 ml Balance -750 ml 700 ml Results Result Diagram: 09/20/1662109/20/16621 Results 24 hrs Laboratory Tests Test 09/19/16 15:40 09/19/16 21:30 09/20/16 06:22 09/20/16 11:39 Bedside Glucose 134 94 Urine Color LT. YELLOW Urine Clarity SL HAZY Urine pH 5.0 Urine Specific [place] 1.020 Urine Ketones NEGATIVE Urine Nitrite NEGATIVE Urine Bilirubin NEGATIVE Urine Urobilinogen 0.2 E.U./dL Urine Leukocyte Esterase 1+ H Urine Microscopic RBC 10-25 Urine Microscopic WBC 10-25 Urine Squamous Epithelial Cells MODERATE Urine Bacteria MANY Urine Hemoglobin 3+ H Urine Glucose NEGATIVE Urine Total Protein TRACE White Blood Count 5.6 # Red Blood Count 4.53 Hemoglobin 15.1 Hematocrit 45.8 Mean Corpuscular Volume 101.1 H Mean Corpuscular Hemoglobin 33.3 H Mean Corpuscular Hemoglobin Concent 33.0 Red Cell Distribution Width 14.1 Platelet Count 113 #L Mean Platelet Volume 12.2 H Neutrophils % 86.8 H Lymphocytes % 6.4 L Monocytes % 6.2 Eosinophils % 0.0 Basophils % 0.2 Nucleated Red Blood Cells % 0.0 Neutrophils # 4.9 Lymphocytes # 0.4 L Monocytes # 0.4 Eosinophils # 0.0 Basophils # 0.0 Nucleated Red Blood Cells # 0.0 Sodium Level 145 H Potassium Level 3.8 Chloride Level 116 H Carbon Dioxide Level 19 L Anion Gap 14 Blood Urea Nitrogen 49 #H Creatinine 1.22 H Glucose Level 114 # Hemoglobin A1c 5.3 Calcium Level 8.7 Phosphorus Level 4.1 Magnesium Level 1.9 Total Bilirubin 2.5 H Direct Bilirubin 0.00 Indirect Bilirubin 2.5 H Aspartate Amino Transf (AST/SGOT) 79 H Alanine Aminotransferase (ALT/SGPT) 39 Alkaline Phosphatase 62 Troponin I 0.230 *H Total Protein 6.0 #L Albumin 3.1 L Globulin 2.90 Albumin/Globulin Ratio 1.06 Vitamin B12 Level 658 Thyroid Stimulating Hormone (TSH) 4.970 H Digoxin Level 0.6 L Test 09/20/16 12:46 09/20/16 12:47 Bedside Glucose 102 Blood Gas Specimen Source Blood arterial Arterial Blood Date Drawn 09/20/2016 1:20:44 PM Arterial Blood pH (Temp corrected) 7.399 Arterial Blood pCO2 (Temp correct) 20.4 L Arterial Blood pO2 (Temp corrected) 102.3 H Arterial Blood HCO3 12.3 L Arterial Blood Base Excess -9.8 L Arterial Blood Oxygen Saturation 97.4 Shayan Test ACCEPTAB Arterial Blood Gas Puncture Site Right Radial Arterial Blood Carboxyhemoglobin 0.3 Arterial Blood Methemoglobin 0.3 Blood Gas A-a O2 Differential 590.3 H Oxyhemoglobin Percent 96.8 Total Hemoglobin 15.7 Blood Gas Temperature 37.0 Blood Gas Modality MASK - NRB FiO2 100.0 Blood Gas Notified Whom JLD Blood Gas Notified Time 09/20/2016 1:33:30 PM Medications Medications Current Medications Diltiazem HCl (Cardizem-D5W 125 Mg/125 ml Drip) 125 ml @ 0 mls/hr Q0M IV Last administered on 09/20/16 11:36; Admin Dose 15 MLS/HR; Start 09/19/16 at 01:30 Ondansetron HCl (Zofran Inj) 4 mg Q6H PRN IV NAUSEA AND/OR VOMITING; Start 09/19 at 01:30 Lorazepam 0.5 mg 0.5 mg Q6H PRN IV ANXIETY Last administered on 09/20/16 03:20 ; Admin Dose 0.5 MG; Start 09/19/16 at 11:00 Sodium Chloride (NS) 1,000 ml @ 75 mls/hr [id number] IV Last administered on 09/20 05:33; Admin Dose 75 MLS/HR; Start 09/19/16 at 16:30 Furosemide (Lasix) 40 mg DAILY IV Last administered on 09/20/16 10:18; Admin Dose 40 MG; Start 09/19/16 at 20:00 Digoxin (Digoxin) 250 mcg DAILY@13 IV Last administered on 09/19/16 20:47; Admin Dose 250 MCG; Start 09/19/16 at 20:00 Enoxaparin Sodium (Lovenox) 40 mg DAILY SC Last administered on 09/20/16 10:18 ; Admin Dose 40 MG; Start 09/20/16 at 09:00 Hydralazine HCl (Apresoline) 10 mg Q4H PRN IV SBP>150; Start 09/19/16 at 20:30 BRIGIDA KELLY MD September 20, 2016 14:02
[2016-09-20] MEDS: DIGOXIN 500 MCG INJ IV SCH (14:17)
[2016-09-20] MEDS ORDERED: DEXTROSE 5%-0.45% NACL 1,000 ML IV SCH (14:30)
[2016-09-20] MEDS ORDERED: SOD CHLORIDE 0.9% 250 ML IV ONE ×3 (14:30→18:00)
[2016-09-20] MEDS ORDERED: NORepinephrine 8MG/250 ML (PMX 250 ML ONE (15:40)
[2016-09-20] MEDS ORDERED: LEVALBUTEROL (NEB) 0.63 MG/3 ML AMP HHN SCH (16:00)
[2016-09-20] MEDS ORDERED: LEVALBUTEROL (NEB) 1.25 MG/0.5 ML AMP HHN SCH (16:00)
[2016-09-20] MEDS ORDERED: LEVALBUTEROL (NEB) 0.63 MG/3 ML AMP HHN PRN (16:00)
[2016-09-20] MEDS ORDERED: NORepinephrine 8MG/250 ML (PMX 250 ML IV SCH (16:00)
[2016-09-20] MEDS ORDERED: CEFTRIAXONE 2 GM INJ IVPB ONE (16:30)
[2016-09-20] MEDS ORDERED: ROCURONIUM 50 MG INJ ONE (17:20)
--- NOTE | 2016-09-20 17:28 | CONS ---
Date/Time of Note Date/Time of Note DATE: 09/20/16 TIME: 17:23 Assessment/Plan Assessment/Plan Additional Assessment/Plan Chest x-ray was reviewed from today which is showing mild CHF. ABG also was reviewed which is showing respiratory alkalosis from hyperventilation with hypoxemia. Patient currently on BiPAP 100% FiO2 15/5. Assessment recommendations; 1. Patient admitted with altered mental status due to combination of CHF and UTI with sepsis. 2. Severe hypotension, requiring pressor support. Patient also has been fluid resuscitated. 3. Chronic atrial fibrillation, patient initially admitted also with A. fib with RVR, now rate is controlled. 4. Slight increase in serum creatinine. Patient will need to be intubated, I did have a discussion with the family they want all aggressive measures done. A central line already has been placed. Patient will be given another fluid bolus of 500 mL before intubation as the patient already has marginal blood pressure readings that may worsen after intubation. I did discuss with the family the prognosis extremely guarded and despite all efforts patient may not do well. Family does understand the risks. Prognosis is extremely guarded. Consultation Date/Type/Reason Admit Date/Time September 18, 2016 at 20:17 Date of Consultation: September 20, 2016 Type of Consultation: Pulmonary/critical care Reason for Consultation Pulmonary consultation obtained for evaluation of impending respiratory failure. History presenting any; patient is a 76-year-old lady who was brought into the hospital yesterday with complaints of not feeling well with generalized abdominal pain and weakness. On evaluation patient was diagnosed with UTI and sepsis as well as congestive heart failure. The patient condition is worsening to the point where she is requiring BiPAP at 100% FiO2 and is appearing more lethargic. Patient also been getting progressively more hypotensive and has been given a fluid bolus as well as started on Levophed drip with marginal improvement in blood pressure readings. Patient also did not have any peripheral IV access therefore I was consulted to put a central line which was done without difficulty in the right femoral vein. History was obtained from medical records as well as from patient's family were currently in the room. They want full resuscitative measures including intubation if needed. The patient is at a point where she will will need to be intubated as the likelihood of compensation is very high. Past medical history; next 1. Patient with a history of atrial fibrillation, 2. History of pacemaker implantation. 3. Hypertension. Medications; reviewed. Allergies; none. Social history; no history of any smoking. Family history; patient does have a supportive family. Various members of diabetes hypertension. Review of systems; unable to be obtained. General exam; elderly woman, essentially unresponsive, tachypneic and tachycardic. Psychological: confusion, No nl mood/affect, No no complaints Exam/Review of Systems Vital Signs Vitals Vital Signs Date Time Temp Pulse Resp B/P Pulse Ox O2 Delivery O2 Flow Rate FiO2 09/20/16 16:50 95 6.0 09/20/16 16:00 98 09/20/16 15:19 100 09/20/16 12:34 34 Nasal Cannula 09/20/16 11:51 99.4 99/58 Intake and Output 09/19/16 09/19/16 09/20/16 15:00 23:00 07:00 Intake Total 1200 ml Output Total 750 ml 500 ml Balance -750 ml 700 ml Exam HEENT exam; supple neck, positive JVD. No lymphadenopathy. Midline trachea. No thyromegaly. Patient is edentulous. Has bilateral cataracts. Pupils are small bilaterally. No neck masses. Chest examination; diminished breath sound bilaterally. S1-S2 audible, irregular rhythm pacemaker in left chest wall. Abdomen examination; soft, no organomegaly. Bowel sounds are absent. Umbilicus is inverted. Extremity examination; no peripheral edema. Femoral pulses are very feeble bilaterally. Radial pulses are palpable. HALF [employer] examination; patient is essentially unresponsive. Results Result Diagram: 09/20/1662109/20/16621 Results 24 hrs Laboratory Tests Test 09/19/16 21:30 09/20/16 06:22 09/20/16 11:39 09/20/16 12:46 Urine Color LT. YELLOW Urine Clarity SL HAZY Urine pH 5.0 Urine Specific [place] 1.020 Urine Ketones NEGATIVE Urine Nitrite NEGATIVE Urine Bilirubin NEGATIVE Urine Urobilinogen 0.2 E.U./dL Urine Leukocyte Esterase 1+ H Urine Microscopic RBC 10-25 Urine Microscopic WBC 10-25 Urine Squamous Epithelial Cells MODERATE Urine Bacteria MANY Urine Hemoglobin 3+ H Urine Glucose NEGATIVE Urine Total Protein TRACE White Blood Count 5.6 # Red Blood Count 4.53 Hemoglobin 15.1 Hematocrit 45.8 Mean Corpuscular Volume 101.1 H Mean Corpuscular Hemoglobin 33.3 H Mean Corpuscular Hemoglobin Concent 33.0 Red Cell Distribution Width 14.1 Platelet Count 113 #L Mean Platelet Volume 12.2 H Neutrophils % 86.8 H Lymphocytes % 6.4 L Monocytes % 6.2 Eosinophils % 0.0 Basophils % 0.2 Nucleated Red Blood Cells % 0.0 Neutrophils # 4.9 Lymphocytes # 0.4 L Monocytes # 0.4 Eosinophils # 0.0 Basophils # 0.0 Nucleated Red Blood Cells # 0.0 Sodium Level 145 H Potassium Level 3.8 Chloride Level 116 H Carbon Dioxide Level 19 L Anion Gap 14 Blood Urea Nitrogen 49 #H Creatinine 1.22 H Glucose Level 114 # Hemoglobin A1c 5.3 Calcium Level 8.7 Phosphorus Level 4.1 Magnesium Level 1.9 Total Bilirubin 2.5 H Direct Bilirubin 0.00 Indirect Bilirubin 2.5 H Aspartate Amino Transf (AST/SGOT) 79 H Alanine Aminotransferase (ALT/SGPT) 39 Alkaline Phosphatase 62 Troponin I 0.230 *H Total Protein 6.0 #L Albumin 3.1 L Globulin 2.90 Albumin/Globulin Ratio 1.06 Vitamin B12 Level 658 Thyroid Stimulating Hormone (TSH) 4.970 H Digoxin Level 0.6 L Hepatitis B Surface Antigen NEGATIVE Hepatitis B Surface Antibody NEGATIVE Hepatitis C Antibody NEGATIVE HIV (1&2) Antibody NEGATIVE Bedside Glucose 94 102 Test 09/20/16 12:47 Blood Gas Specimen Source Blood arterial Arterial Blood Date Drawn 09/20/2016 1:20:44 PM Arterial Blood pH (Temp corrected) 7.399 Arterial Blood pCO2 (Temp correct) 20.4 L Arterial Blood pO2 (Temp corrected) 102.3 H Arterial Blood HCO3 12.3 L Arterial Blood Base Excess -9.8 L Arterial Blood Oxygen Saturation 97.4 Shayan Test ACCEPTAB Arterial Blood Gas Puncture Site Right Radial Arterial Blood Carboxyhemoglobin 0.3 Arterial Blood Methemoglobin 0.3 Blood Gas A-a O2 Differential 590.3 H Oxyhemoglobin Percent 96.8 Total Hemoglobin 15.7 Blood Gas Temperature 37.0 Blood Gas Modality MASK - NRB FiO2 100.0 Blood Gas Notified Whom JLD Blood Gas Notified Time 09/20/2016 1:33:30 PM Medications Medications Current Medications Diltiazem HCl (Cardizem-D5W 125 Mg/125 ml Drip) 125 ml @ 0 mls/hr Q0M IV Last administered on 09/20/16t 11:36; Admin Dose 15 MLS/HR; Start 09/19/16 at 01:30 Ondansetron HCl (Zofran Inj) 4 mg Q6H PRN IV NAUSEA AND/OR VOMITING; Start 09/19 at 01:30 Lorazepam (Ativan) 0.5 mg Q6H PRN IV ANXIETY Last administered on 09/20/16 03: 20; Admin Dose 0.5 MG; Start 09/19/16 at 11:00 Furosemide (Lasix) 40 mg DAILY IV Last administered on 09/20/16 10:18; Admin Dose 40 MG; Start 09/19/16 at 20:00 Digoxin (Digoxin) 250 mcg DAILY@13 IV Last administered on 09/20/16 14:17; Admin Dose 250 MCG; Start 09/19/16 at 20:00 Enoxaparin Sodium (Lovenox) 40 mg DAILY SC Last administered on 09/20/16 10:18 ; Admin Dose 40 MG; Start 09/20/16 at 09:00 Hydralazine HCl 10 mg 10 mg Q4H PRN IV SBP>150; Start 09/19/16 at 20:30 Dextrose/Sodium Chloride 1,000 ml @ 75 mls/hr [id number] IV ; Start 09/20/16 at 14 :30 Norepinephrine 250 ml @ 1.875 mls/ hr TITRATE IV ; Start 09/20/16 at 16:00; Stop 09/21/16 at 07:00 Norepinephrine 16 mg/Dextrose 500 ml @ 0 mls/hr TITRATE IV ; Start 09/21/16 at 07:00 Ceftriaxone Sodium 50 ml @ 100 mls/hr NOW IVPB ; Start 09/20/16 at 17:30; Stop 09/20/16 at 17:59 Sodium Chloride (NS) 250 ml @ 250 mls/hr Q1H ONCE IV ; Start 09/20/16 at 18:00 ; Stop 09/20/16 at 18:59 ROSE MARY COVARRUBIAS September 20, 2016 17:28
--- NOTE | 2016-09-20 17:29 | EN ---
Date/Time of Note Date/Time of Note DATE: 09/20/16 TIME: 17:28 Event Note Medicine Medicine Event Note Right femoral central venous triple lumen catheter placed without difficulty via Seldinger technique. Consent was obtained already from the family earlier. The patient had very poor peripheral IV access with severe hypotension requiring pressor support as well as fluid resuscitation requiring central line placement. ROSE MARY COVARRUBIAS September 20, 2016 17:29
[2016-09-20] MEDS ORDERED: CEFTRIAXONE 2 GM/NS 50 ML IVPB SCH (17:30)
--- NOTE | 2016-09-20 17:36 | EN ---
Date/Time of Note Date/Time of Note DATE: 09/20/16 TIME: 17:34 Event Note Medicine Medicine Event Note Patient intubated orally with 7.5 endotracheal tube without difficulty. 8 mg of rocuronium was given intravenous push for paralysis. Vocal cords were directly visualized and endotracheal tube traversed through the cords.. A stat chest x-ray been ordered. ROSE MARY COVARRUBIAS September 20, 2016 17:36
[2016-09-20] MEDS: MIDAZOLAM (DRIP) 50 mg/50 mL 50 ML IV SCH ×2 (18:10→23:34)
[2016-09-20] MEDS ORDERED: CEFEPIME 1GM/50 ML (PMX) 50 ML IVPB SCH (18:30)
--- NOTE | 2016-09-20 18:59 | RADRPT ---
PROCEDURE: XR Chest. CLINICAL INDICATION: Check endotracheal tube position. TECHNIQUE: Single frontal view. COMPARISON: 09/20/2016. 0834 hours. FINDINGS: The endotracheal tube has been inserted in satisfactory position with the tip 2.5 cm above the elvira a. There is atelectasis at the lung bases with left worse than right. The lungs are otherwise adela r. The heart is enlarged. There is calcification in the aorta consistent with atherosclerosis. A left -sided single lead permanent pacemaker is noted. There are small bilateral pleural effusions. There is no pneumothorax. IMPRESSION: 1. Endotracheal tube in satisfactory position. 2. No other change from the prior study done earlier the same day. RPTAT: QQ .Winston Lunsford MD, MD Date Time Electronically viewed and signed by .Winston Lunsford MD, MD on 09/20/2016 18:59 .R/
[2016-09-20 19:24] LABS: AADO2 Arterial 433.4 mmHg (7.0-24.0); Allen Test ACCEPTAB; Arterial Base Excess -13.8 mmol/L (-3.0-3); Arterial COHb 0.1 % (0.0-3.0); Arterial Fraction of Oxyhgb 98.9 % (93.0-99.0); Arterial HCO3 11.6 mmol/L (22.0-26.0); Arterial MetHb 0.3 % (0.0-1.5); Arterial Total Hemglobin 14.3 g/dl (12.0-18.0); MODE VENT - AC
[2016-09-20] MEDS ORDERED: NA BICARBONATE 8.4% 50 ML SYG IV STA (19:39)
[2016-09-20] MEDS ORDERED: PHENYLephrine 20MG IN 250 ML 250 ML IV PRN (20:00)
[2016-09-20] MEDS ORDERED: FENTAnyl (DRIP) 1000 mcg/100mL 100 ML IV PRN (20:00)
[2016-09-20] MEDS ORDERED: AMIODARONE 900 MG in DEXTROSE 5% 482 ML IV SCH (20:00)
[2016-09-20] MEDS ORDERED: SODIUM BICARBONATE (IV ADD) 100 MEQ in DEXTROSE 5% 900 ML IV SCH (20:00)
[2016-09-20] MEDS: LEVALBUTEROL (HFA) 15 GM INHALER INH SCH ×2 (20:40→23:58)
--- NOTE | 2016-09-20 21:49 | CONS ---
Date/Time of Note Date/Time of Note DATE: 09/20/16 TIME: 21:46 Assessment/Plan Assessment/Plan Chief Complaint/Hosp Course Assessment: Septic shock secondary to urinary tract infection - antibiotics per primary team , follow up cultures Atrial fibrillation (likely chronic) with rapid ventricular response Single-chamber permanent pacemaker - incomplete data Acute on chronic systolic heart failure Cardiomyopathy, LVEF 25-30% - etiology unknown Valvular heart disease - moderate to severe mitral regurgitation, moderate aortic regurgitation NSTEMI - likely type 2, conservative management History of hypertension History of stroke Acute on chronic encephalopathy Recommendations: -Levophed drip to keep MAP>65, wean as tolerated -discontinue Lasix -continue digoxin 0.25mg IV daily -holding Eliquis -echocardiogram showed LVEF 25-30%, moderate to severe MR, moderate AR, moderate LAE, RVSP 64 mmHg Problems: Consultation Date/Type/Reason Admit Date/Time September 18, 2016 at 20:17 Initial Consult Date 09/20/16 Type of Consultation: Cardiology 24 HR Interval Summary Free Text/Dictation Transferred to ICU for hypotension and respiratory distress. On Levophed drip. Intubated and on mechanical ventilation. Detailed Summary Additional Comments Unable to obtain review of systems, patient is intubated. Exam/Review of Systems Vital Signs Vitals Vital Signs Date Time Temp Pulse Resp B/P Pulse Ox O2 Delivery O2 Flow Rate FiO2 09/20/16 21:36 101 30 97 70 09/20/16 17:30 97/87 Mechanical Ventilator 09/20/16 16:50 6.0 09/20/16 16:00 100.0 Intake and Output 09/19/16 09/19/16 09/20/16 15:00 23:00 07:00 Intake Total 1200 ml Output Total 750 ml 500 ml Balance -750 ml 700 ml Exam Constitutional: non-verbal, intubated No alert, No oriented Psych: confusion, No nl mood/affect, No no complaints Head: atraumatic, normocephalic Eyes: nl conjunctiva, nl lids ENMT: nl external ears & nose, nl nasal mucosa & septum Neck: jvd, non-tender, supple Respiratory: crackles/rales, No wheezing Cardiovascular: irregular rhythm Gastrointestinal: soft, tender Musculoskeletal: nl extremities to inspection Extremities: No clubbing, No cyanosis, No edema Neurological: No nl mental status, No nl speech Results Result Diagram: 09/20/16 0622 09/20/16 0622 Results 24 hrs Laboratory Tests Test 09/20/16 06:22 09/20/16 11:39 09/20/16 12:46 09/20/16 12:47 White Blood Count 5.6 # Red Blood Count 4.53 Hemoglobin 15.1 Hematocrit 45.8 Mean Corpuscular Volume 101.1 H Mean Corpuscular Hemoglobin 33.3 H Mean Corpuscular Hemoglobin Concent 33.0 Red Cell Distribution Width 14.1 Platelet Count 113 #L Mean Platelet Volume 12.2 H Neutrophils % 86.8 H Lymphocytes % 6.4 L Monocytes % 6.2 Eosinophils % 0.0 Basophils % 0.2 Nucleated Red Blood Cells % 0.0 Neutrophils # 4.9 Lymphocytes # 0.4 L Monocytes # 0.4 Eosinophils # 0.0 Basophils # 0.0 Nucleated Red Blood Cells # 0.0 Sodium Level 145 H Potassium Level 3.8 Chloride Level 116 H Carbon Dioxide Level 19 L Anion Gap 14 Blood Urea Nitrogen 49 #H Creatinine 1.22 H Glucose Level 114 # Hemoglobin A1c 5.3 Calcium Level 8.7 Phosphorus Level 4.1 Magnesium Level 1.9 Total Bilirubin 2.5 H Direct Bilirubin 0.00 Indirect Bilirubin 2.5 H Aspartate Amino Transf (AST/SGOT) 79 H Alanine Aminotransferase (ALT/SGPT) 39 Alkaline Phosphatase 62 Troponin I 0.230 *H Total Protein 6.0 #L Albumin 3.1 L Globulin 2.90 Albumin/Globulin Ratio 1.06 Vitamin B12 Level 658 Thyroid Stimulating Hormone (TSH) 4.970 H Digoxin Level 0.6 L Hepatitis B Surface Antigen NEGATIVE Hepatitis B Surface Antibody NEGATIVE Hepatitis C Antibody NEGATIVE HIV (1&2) Antibody NEGATIVE Bedside Glucose 94 102 Blood Gas Specimen Source Blood arterial Arterial Blood Date Drawn 09/20/2016 1:20:44 PM Arterial Blood pH (Temp corrected) 7.399 Arterial Blood pCO2 (Temp correct) 20.4 L Arterial Blood pO2 (Temp corrected) 102.3 H Arterial Blood HCO3 12.3 L Arterial Blood Base Excess -9.8 L Arterial Blood Oxygen Saturation 97.4 Shayan Test ACCEPTAB Arterial Blood Gas Puncture Site Right Radial Arterial Blood Carboxyhemoglobin 0.3 Arterial Blood Methemoglobin 0.3 Blood Gas A-a O2 Differential 590.3 H Oxyhemoglobin Percent 96.8 Total Hemoglobin 15.7 Blood Gas Temperature 37.0 Blood Gas Modality MASK - NRB FiO2 100.0 Blood Gas Notified Whom JLD Blood Gas Notified Time 09/20/2016 1:33:30 PM Test 09/20/16 18:20 09/20/16 19:00 Bedside Glucose 165 Blood Gas Specimen Source Blood arterial Arterial Blood Date Drawn 09/20/2016 7:10:05 PM Arterial Blood pH (Temp corrected) 7.254 *L Arterial Blood pCO2 (Temp correct) 26.9 L Arterial Blood pO2 (Temp corrected) 252.7 H Arterial Blood HCO3 11.6 L Arterial Blood Base Excess -13.8 L Arterial Blood Oxygen Saturation 99.3 Shayan Test ACCEPTAB Arterial Blood Gas Puncture Site Left Radial Arterial Blood Carboxyhemoglobin 0.1 Arterial Blood Methemoglobin 0.3 Blood Gas A-a O2 Differential 433.4 H Oxyhemoglobin Percent 98.9 Total Hemoglobin 14.3 Blood Gas Temperature 37.0 Blood Gas Respiration Rate 16.0 Blood Gas Actual Respiration Rate 32 Blood Gas Modality VENT - AC FiO2 100.0 Blood Gas Tidal Volume 400.0 Blood Gas Low PEEP Setting 5.0 Blood Gas Critical Value Read Back MNGO RN Blood Gas Notified Whom STEPHAN Blood Gas Notified Time 09/20/2016 7:24:18 PM Medications Medications Current Medications Diltiazem HCl (Cardizem-D5W 125 Mg/125 ml Drip) 125 ml @ 0 mls/hr Q0M IV Last administered on 09/20/16 11:36; Admin Dose 15 MLS/HR; Start 09/19/16 at 01:30 Ondansetron HCl (Zofran Inj) 4 mg Q6H PRN IV NAUSEA AND/OR VOMITING; Start 09/19 at 01:30 Lorazepam (Ativan) 0.5 mg Q6H PRN IV ANXIETY Last administered on 09/20/16 17: 58; Admin Dose 0.5 MG; Start 09/19/16 at 11:00 Furosemide (Lasix) 40 mg DAILY IV Last administered on 09/20/16 10:18; Admin Dose 40 MG; Start 09/19/16 at 20:00 Digoxin (Digoxin) 250 mcg DAILY@13 IV Last administered on 09/20/16 14:17; Admin Dose 250 MCG; Start 09/19/16 at 20:00 Enoxaparin Sodium (Lovenox) 40 mg DAILY SC Last administered on 09/20/16 10:18 ; Admin Dose 40 MG; Start 09/20/16 at 09:00 Hydralazine HCl 10 mg 10 mg Q4H PRN IV SBP>150; Start 09/19/16 at 20:30 Norepinephrine 250 ml @ 1.875 mls/ hr TITRATE IV Last administered on 15:40; Admin Dose 56.25 MLS/HR; Start 09/20/16 at 16:00; Stop 09/21/16 at 07:00 Norepinephrine 16 mg/Dextrose 500 ml @ 0 mls/hr TITRATE IV ; Start 09/21/16 at 07:00 Cefepime HCl 50 ml @ 100 mls/hr Q24H IVPB Last administered on 09/20/16 18:30 ; Admin Dose 100 MLS/HR; Start 09/20/16 at 18:30 Amiodarone HCl 900 mg/Dextrose 500 ml @ 0 mls/hr Q0M IV ; Start 09/20/16 at 20: 00; Stop 09/21/16 at 19:59 Midazolam HCl (Versed) 50 ml @ 1 mls/hr TITRATE IV Last administered on 18:10; Admin Dose 1 MLS/HR; Start 09/20/16 at 18:00 Levalbuterol 4 puff 4 puff Q6 INH Last administered on 09/20/16 20:40; Admin Dose 4 PUFF; Start 09/20/16 at 20:00 Sodium Bicarbonate 100 meq/Dextrose 1,000 ml @ 75 mls/hr [id number] IV Last administered on 09/20/16 20:53; Admin Dose 75 MLS/HR; Start 09/20/16 at 20:00 Phenylephrine HCl 250 ml @ 75 mls/hr TITRATE PRN IV BLOOD PRESSURE SUPPORT; Start 09/20/16 at 20:00 Fentanyl (Sublimaze) 100 ml @ 2.5 mls/hr TITRATE PRN IV SEDATION Last administered on 09/20/16 21:08; Admin Dose 2.5 MLS/HR; Start 09/20/16 at 20:00 MAKI WARE MD September 20, 2016 21:49
[2016-09-21] VITALS (101 sets, daily range): BP systolic 41–127; BP diastolic 17–98; PULSE 82–125; RESP 16–31
[2016-09-21] MEDS: LEVALBUTEROL (HFA) 15 GM INHALER INH SCH ×4 (00:39→19:31)
[2016-09-21] MEDS ORDERED: ACETAMINOPHEN 650MG/20.3ML CUP GTB PRN (04:00)
[2016-09-21] MEDS ORDERED: VANCOMYCIN IV PER PHARMACY XX SCH (04:00)
[2016-09-21] MEDS ORDERED: SOD CHLORIDE 0.9% 500 ML IV ONE ×4 (04:00→22:00)
[2016-09-21] MEDS: MIDAZOLAM (DRIP) 50 mg/50 mL 50 ML IV SCH ×2 (04:56→13:00)
[2016-09-21] MEDS ORDERED: VANCOMYCIN 1.25 GM in SOD CHLORIDE 0.9% 250 ML IVPB ONE (05:00)
[2016-09-21] MEDS: VASOPRESSIN 60 UNIT in DEXTROSE 5% 57 ML IV SCH ×2 (06:00→16:48)
[2016-09-21 06:13] LABS: ADD SCAN DIFF NO
[2016-09-21 06:21] LABS: ABNORMAL IP MESSAGE 1; HEMATOCRIT 42.8 % (37.0-47.0); HEMOGLOBIN 13.4 g/dl (12.0-16.0); MEAN CORPUSCULAR HEMOGLOBIN 33.3 pg (29.0-33.0); MEAN CORPUSCULAR HGB CONC 31.3 g/dl (32.0-37.0); MEAN CORPUSCULAR VOLUME 106.5 fl (82.0-101.0); MEAN PLATELET VOLUME 12.7 fl (7.4-10.4); PLATELET COUNT 96 10^3/UL (140-415); RED BLOOD COUNT 4.02 10^6/ul (4.20-5.40); RED CELL DISTRIBUTION WIDTH 14.6 % (11.5-14.5); WHITE BLOOD COUNT 7.1 10^3/ul (4.8-10.8)
--- NOTE | 2016-09-21 06:34 | RADRPT ---
PROCEDURE: XR Chest. CLINICAL INDICATION: NG tube placement TECHNIQUE: An AP view of the chest was obtained. COMPARISON: Chest x-ray dated 09/20/2016 FINDINGS: The endotracheal tube tip is approximately 2.4 cm above the katy. The tip of the enteric tube pr ojects over the left upper quadrant. There is a left subclavian single lead pacemaker. There is prominence and coarsening of the interstitial markings. There are bibasilar reticular inte rstitial opacities. No pleural effusion or pneumothorax is seen. The cardiomediastinal silhouette i s mildly enlarged . Calcifications are seen within the aortic arch. The osseous structures demonst rate senescent changes. IMPRESSION: 1. Mild prominence of the interstitial markings, may reflect mild underlying interstitial edema or chronic lung changes. Lung aeration is improved when compared to the prior examination. 2. Mild cardiomegaly and aortic atherosclerosis. 3. Tubes and lines, as described above. The tip of the nasogastric tube is within the gastric lumen. RPTAT: HH .Denisa Johnson MD, MD Date Time Electronically viewed and signed by .Denisa Johnson MD, on 09/21/2016 06:33 .G/
[2016-09-21] MEDS: PHENYLephrine 40 MG in DEXTROSE 5% 496 ML IV SCH ×2 (06:40→09:07)
[2016-09-21 07:12] LABS: ALBUMIN 2.4 g/dl (3.3-4.9); ALBUMIN/GLOBULIN RATIO 0.88; BILIRUBIN,INDIRECT 2.5 mg/dl (0-1.1); BILIRUBIN,TOTAL 2.5 mg/dl (0.2-1.3); CALCIUM 7.3 mg/dl (8.4-10.2); CREATININE 2.97 mg/dl (0.44-1.00); MAGNESIUM 1.9 mg/dl (1.7-2.5); PHOSPHORUS 6.4 mg/dl (2.5-4.9); POTASSIUM 4.7 mmol/L (3.5-5.1); TOTAL PROTEIN 5.1 g/dl (6.1-8.1)
[2016-09-21 07:13] LABS: TROPONIN-I 0.401 ng/ml (0.00-0.12)
[2016-09-21 08:29] LABS: AADO2 Arterial 227.7 mmHg (7.0-24.0); Allen Test ACCEPTAB; Arterial Base Excess -16.7 mmol/L (-3.0-3); Arterial COHb 0.6 % (0.0-3.0); Arterial HCO3 10.9 mmol/L (22.0-26.0); Arterial MetHb 0.3 % (0.0-1.5); Arterial Total Hemglobin 13.6 g/dl (12.0-18.0); MODE VENT - AC
[2016-09-21] MEDS: SODIUM BICARBONATE IV SCH ×2 (10:19→20:13)
[2016-09-21] MEDS: DEXTROSE 5% IV SCH ×2 (10:19→20:13)
[2016-09-21] MEDS: PHENYLephrine 80 MG in DEXTROSE 5% 492 ML IV SCH ×4 (10:22→22:45)
--- NOTE | 2016-09-21 10:33 | RADRPT ---
Vent Rate: 117 bpm RR Interval: 0 msec NE Interval: 0 msec QRS Duration: 84 msec QT Interval: 322 msec QTC Interval: 449 msec P-R-T [place]: 0 - 0 - 0 degrees Atrial fibrillation with rapid ventricular response with premature ventricular or aberrantly conducted complexes Minimal voltage criteria for LVH, may be normal variant ST amp; T wave abnormality, consider inferior ischemia or digitalis effect ST amp; T wave abnormality, consider anterolateral ischemia or digitalis effect Abnormal ECG Electronically Signed By: Kashmir Almanza [id number]
--- NOTE | 2016-09-21 12:05 | CONS ---
DATE OF ADMISSION: 09/18/2016 DATE OF CONSULTATION: 09/21/2016 TYPE OF CONSULTATION: Pulmonary. REASON FOR CONSULTATION: Respiratory failure. Thank you, Dr. Cloud, for this consultation. HISTORY OF PRESENT ILLNESS: This is a 76-year-old lady with a history of hypertension, hyperlipidem ia, dementia, brought in for altered mental status, abdominal pain, nausea, vomiting. On admission found to be in atrial fibrillation with rapid ventricular rate, initially placed on noninvasive posi tive pressure ventilation; however, had deterioration in condition requiring emergent intubation and ____mechanical ventilation. Since that time, she appears mostly somnolent, currently on multiple v asopressors with no urine output. PAST MEDICAL HISTORY: 1. Dementia. 2. Pacemaker. 3. History of hypertension. 4. Deconditioning. 5. Dysphagia. 6. Cardiomyopathy with decreased ejection fraction. MEDICATIONS: Per chart. ALLERGIES: NONE. SOCIAL HISTORY: Nonsmoker, no alcohol, no history of drug use. FAMILY HISTORY: Noncontributory. SYSTEMS REVIEW: A 12-point review of systems was negative other than that mentioned above. PHYSICAL EXAMINATION: GENERAL: Chronically ill appearing lady, appears comfortable at rest, no acute distress. VITAL SIGNS: Currently afebrile, pulse is 96 on 2 vasopressors. Blood pressure 80/50, O2 saturatio n 96% on FIO2 of 50%. ____ Pupils equal and reactive to light. CARDIAC: S1, S2, no added sounds or murmurs. CHEST: Diminished air entry bilaterally. ABDOMEN: Soft, nontender. No guarding or rebound. EXTREMITIES: No cyanosis, clubbing, or edema. NEUROLOGIC: Unable to assess. LABORATORIES: White count 7.1, hemoglobin 13.4, platelets of 96. Hemoglobin A1c 5.6. Lactic acid 6.5. ABG: pH 7.15, pCO2 of 36, PO2 of 129, bicarbonate was 10.9. IMAGING: Urine cultures show E. coli sensitive to cefepime, gentamicin, imipenem, piperacillin/tazo bactam and tobramycin. IMPRESSION AND PLAN: 1. Septic shock. 2. Renal failure. 3. Hypoxemic respiratory failure. 4. History of pacemaker. 5. History of hypertension. PLAN: 1. Continue aggressive volume resuscitation. 2. Intravenous bicarbonate. 3. Broad-spectrum antibiotics. 4. Consider renal consultation. 5. Discussed with family regarding goals of care. Overall, prognosis guarded. Dictated By: LIZBET OLIVEROS/SHANNON Conf#: [id number] DID#: [id number]
[2016-09-21] MEDS: DIGOXIN 500 MCG INJ IV SCH (12:58)
[2016-09-21 13:14] LABS: LYMPHOCYTES # 0.2 10^3/ul (0.8-2.9); MONOCYTE # 2.2 10^3/ul (0.3-0.9); MYELOCYTES # 0.4; NEUTROPHIL # 2.8 10^3/ul (1.6-7.5)
--- NOTE | 2016-09-21 14:33 | CONS ---
Date/Time of Note Date/Time of Note DATE: 09/21/16 TIME: 14:31 Assessment/Plan Assessment/Plan Chief Complaint/Hosp Course Assessment: Septic shock secondary to urinary tract infection - antibiotics per primary team , follow up cultures Acute ventilator-dependent respiratory failure Acute kidney injury Atrial fibrillation (likely chronic) - now rate-controlled Single-chamber permanent pacemaker - incomplete data Acute on chronic systolic heart failure Cardiomyopathy, LVEF 25-30% - etiology unknown Valvular heart disease - moderate to severe mitral regurgitation, moderate aortic regurgitation NSTEMI - likely type 2, conservative management History of hypertension History of stroke Acute on chronic encephalopathy Recommendations: -intravenous fluid resuscitation -continue pressors to keep MAP>65, wean as tolerated -continue digoxin 0.25mg IV daily -holding Eliquis -echocardiogram showed LVEF 25-30%, moderate to severe MR, moderate AR, moderate LAE, RVSP 64 mmHg Problems: Consultation Date/Type/Reason Admit Date/Time September 18, 2016 at 20:17 Initial Consult Date 09/20/16 Type of Consultation: Cardiology 24 HR Interval Summary Free Text/Dictation Increasing pressor requirements, now on Levophed and phenylephrine. Worsening acidosis on ABG. Remains intubated and on mechanical ventilation. Detailed Summary Additional Comments Unable to obtain review of systems, patients is intubated. Exam/Review of Systems Vital Signs Vitals Vital Signs Date Time Temp Pulse Resp B/P Pulse Ox O2 Delivery O2 Flow Rate FiO2 09/21/16 14:00 109 19 103/49 Mechanical Ventilator 09/21/16 12:00 60 09/21/16 11:30 99.1 09/21/16 11:00 91 09/20/16 16:50 6.0 Intake and Output 09/20/16 09/20/16 09/21/16 15:00 23:00 07:00 Intake Total 1557.50 ml 2450.75 ml Output Total 200 ml 320 ml 0 ml Balance -200 ml 1237.50 ml 2450.75 ml Exam Constitutional: non-verbal, intubated No alert, No oriented Psych: confusion, No nl mood/affect, No no complaints Head: atraumatic, normocephalic Eyes: nl conjunctiva, nl lids ENMT: nl external ears & nose, nl nasal mucosa & septum Neck: jvd, non-tender, supple Respiratory: crackles/rales, No wheezing Cardiovascular: irregular rhythm Gastrointestinal: soft, tender Musculoskeletal: nl extremities to inspection Extremities: No clubbing, No cyanosis, No edema Neurological: No nl mental status, No nl speech Results Result Diagram: 09/21/16 0525 09/21/16 0525 Results 24 hrs Laboratory Tests Test 09/20/16 18:20 09/20/16 19:00 09/21/16 05:25 09/21/16 07:00 Bedside Glucose 165 Blood Gas Specimen Source Blood arterial Blood arterial Arterial Blood Date Drawn 09/20/2016 7:10:05 PM 09/21/2016 7:41:28 AM Arterial Blood pH (Temp corrected) 7.254 *L 7.154 *L Arterial Blood pCO2 (Temp correct) 26.9 L 31.6 L Arterial Blood pO2 (Temp corrected) 252.7 H 129.3 H Arterial Blood HCO3 11.6 L 10.9 L Arterial Blood Base Excess -13.8 L -16.7 L Arterial Blood Oxygen Saturation 99.3 97.9 Shayan Test ACCEPTAB ACCEPTAB Arterial Blood Gas Puncture Site Left Radial Right Radial Arterial Blood Carboxyhemoglobin 0.1 0.6 Arterial Blood Methemoglobin 0.3 0.3 Blood Gas A-a O2 Differential 433.4 H 227.7 H Oxyhemoglobin Percent 98.9 97.0 Total Hemoglobin 14.3 13.6 Blood Gas Temperature 37.0 37.0 Blood Gas Respiration Rate 16.0 16.0 Blood Gas Actual Respiration Rate 32 22 Blood Gas Modality VENT - AC VENT - AC FiO2 100.0 55.0 Blood Gas Tidal Volume 400.0 400.0 Blood Gas Low PEEP Setting 5.0 5.0 Blood Gas Critical Value Read Back GRANT RENO RN Blood Gas Notified Whom STEPHAN ASKEW Blood Gas Notified Time 09/20/2016 7:24:18 PM 09/21/2016 8:28:24 AM White Blood Count 7.1 # Red Blood Count 4.02 L Hemoglobin 13.4 Hematocrit 42.8 Mean Corpuscular Volume 106.5 H Mean Corpuscular Hemoglobin 33.3 H Mean Corpuscular Hemoglobin Concent 31.3 L Red Cell Distribution Width 14.6 H Platelet Count 96 L Mean Platelet Volume 12.7 H Neutrophils % 40.0 Band Neutrophils % 21.0 H Lymphocytes % 3.0 L Monocytes % 31.0 H Eosinophils % Myelocytes % 5.0 H Neutrophils # 2.8 Lymphocytes # 0.2 L Monocytes # 2.2 H Eosinophils # Myelocytes # 0.4 Differential Comment MANUAL DIFF Sodium Level 143 Potassium Level 4.7 Chloride Level 116 H Carbon Dioxide Level 17 L Anion Gap 15 Blood Urea Nitrogen 68 H Creatinine 2.97 #H Glucose Level 127 Hemoglobin A1c 5.6 Lactic Acid Level 6.5 *H Calcium Level 7.3 L Phosphorus Level 6.4 #H Magnesium Level 1.9 Total Bilirubin 2.5 H Direct Bilirubin 0.00 Indirect Bilirubin 2.5 H Aspartate Amino Transf (AST/SGOT) 619 H Alanine Aminotransferase (ALT/SGPT) 382 H Alkaline Phosphatase 89 Troponin I 0.401 *H Total Protein 5.1 L Albumin 2.4 L Globulin 2.70 Albumin/Globulin Ratio 0.88 Free Thyroxine 1.05 Total Triiodothyronine 0.30 L Digoxin Level 1.5 # Medications Medications Current Medications Ondansetron HCl (Zofran Inj) 4 mg Q6H PRN IV NAUSEA AND/OR VOMITING; Start 09/19 at 01:30 Lorazepam (Ativan) 0.5 mg Q6H PRN IV ANXIETY Last administered on 09/20/16 17: 58; Admin Dose 0.5 MG; Start 09/19/16 at 11:00 Digoxin (Digoxin) 250 mcg DAILY@13 IV Last administered on 09/21/16 12:58; Admin Dose 250 MCG; Start 09/19/16 at 20:00 Hydralazine HCl 10 mg 10 mg Q4H PRN IV SBP>150; Start 09/19/16 at 20:30 Norepinephrine 16 mg/Dextrose 500 ml @ 0 mls/hr TITRATE IV Last administered on 09/21/16 08:14; Admin Dose 56.25 MLS/HR; Start 09/21/16 at 07:00 Cefepime HCl 50 ml @ 100 mls/hr Q24H IVPB Last administered on 09/20/16 18:30 ; Admin Dose 100 MLS/HR; Start 09/20/16 at 18:30 Midazolam HCl 50 ml @ 1 mls/hr TITRATE IV Last administered on 09/21/16 13:00 ; Admin Dose 8 MLS/HR; Start 09/20/16 at 18:00 Fentanyl (Sublimaze) 100 ml @ 2.5 mls/hr TITRATE PRN IV SEDATION Last administered on 09/20/16 21:08; Admin Dose 2.5 MLS/HR; Start 09/20/16 at 20:00 Acetaminophen 650 mg 650 mg Q4H PRN GTB PAIN AND OR ELEVATED TEMP Last administered on 09/21/16 05:44; Admin Dose 650 MG; Start 09/21/16 at 04:00 Vasopressin 60 unit/Dextrose 60 ml @ 1.2 mls/hr Q12H IV ; Start 09/21/16 at 06: 00 Sodium Bicarbonate 150 meq/Dextrose 1,050 ml @ 100 mls/hr [id number] IV Last administered on 09/21/16 10:19; Admin Dose 100 MLS/HR; Start 09/21/16 at 08:57 Phenylephrine HCl/ Dextrose (Terell-Syneph/D5W) 500 ml @ 37.5 mls/hr TITRATE IV Last administered on 09/21/16 10:22; Admin Dose 112.5 MLS/HR; Start 09/21/16 at 09:30 MAKI WARE MD September 21, 2016 14:33
[2016-09-21 14:39] LABS: AADO2 Arterial 372.1 mmHg (7.0-24.0); Allen Test ACCEPTAB; Arterial Base Excess -15.4 mmol/L (-3.0-3); Arterial COHb 0.8 % (0.0-3.0); Arterial Fraction of Oxyhgb 53.5 % (93.0-99.0); Arterial HCO3 15.1 mmol/L (22.0-26.0); Arterial MetHb 0.1 % (0.0-1.5); Arterial Total Hemglobin 12.9 g/dl (12.0-18.0); MODE VENT - AC
--- NOTE | 2016-09-21 16:36 | PN ---
Date/Time of Note Date/Time of Note DATE: 09/21/16 TIME: 16:28 Assessment/Plan VTE Prophylaxis VTE Prophylaxis Intervention: LMWH Lines/Catheters IV Catheter Type (from Nrs): Peripheral IV Urinary Cath still in place: Yes Reason Cath still needed: urinary retention Assessment/Plan Chief Complaint/Hosp Course S: Events noted. Dehydrated, poor IV access, agitated. I spoke with Carmen ( patient's daughter) w geography faculty member assistance and she agrees to picc. 09/20 events noted. Agitated, fighting with nursing staff. Required Ativan at 3 AM. This late afternoon lethargic/obtunded. Bp low. Cardizem drip stopped. She is presently arousable/ mumbling and moaning ~at her baseline, no family at bedside. Concerning her right arm weakness as well. 09/21 updated family; intubated/pressors/mods/renal insuff/ac limb injury O: A fib RVR rt fairly stable at present. remains on pressors PE No pallor/droop/JVD; ett c/d/i Irreg, no m/r/g Dimin bs bilat BS + nt nd, no r/r/g No edema; cool limbs- mottling of rle Neuro: Nonfocal at present A/P 1. Ac hypoxic respiration failure; usha/ full code at present. 2. MODS; discussed/ recommended dnr w family 3. ARF; may need hd. 4. Shock liver 5. RLE ischemia; fluids/ blood prn 6. A fib w RVR. Rt control/ ivf/Lovenox. 7. Dementia w delirium 8. Secondary Mi/ demand ischemia. medical mngmnt. 9. Pacemaker status, placed in july 21.Htn 11.Deconditioning/ftt 12.Dehydration 13. Dysphagia. Temporary feeds prn; will try to avoid feeding tubes as it will not provide any benefit of quality of life. 10. Acute encephalopathy. 12. Cmy/ ischemic? EF=25%. Poor prognosis. Consult palliative care; talk to speak with family later. 13. Hypoxia/ CHF. Treat heart rate. 14. Lt deficits? MRI when stable. 15. Low platlets 16. Ac cystitis/ esbl 17. Anemia; check occult blood Problems: Exam/Review of Systems Vital Signs Vitals Vital Signs Date Time Temp Pulse Resp B/P Pulse Ox O2 Delivery O2 Flow Rate FiO2 09/21/16 16:00 66 09/21/16 16:00 99.9 89 16 76/42 Mechanical Ventilator 09/21/16 11:00 91 09/20/16 16:50 6.0 Intake and Output 09/20/16 09/20/16 09/21/16 15:00 23:00 07:00 Intake Total 1557.50 ml 2450.75 ml Output Total 200 ml 320 ml 0 ml Balance -200 ml 1237.50 ml 2450.75 ml Results Result Diagram: 09/21/16 0525 09/21/16 0525 Results 24 hrs Laboratory Tests Test 09/20/16 18:20 09/20/16 19:00 09/21/16 05:25 09/21/16 07:00 Bedside Glucose 165 Blood Gas Specimen Source Blood arterial Blood arterial Arterial Blood Date Drawn 09/20/2016 7:10:05 PM 09/21/2016 7:41:28 AM Arterial Blood pH (Temp corrected) 7.254 *L 7.154 *L Arterial Blood pCO2 (Temp correct) 26.9 L 31.6 L Arterial Blood pO2 (Temp corrected) 252.7 H 129.3 H Arterial Blood HCO3 11.6 L 10.9 L Arterial Blood Base Excess -13.8 L -16.7 L Arterial Blood Oxygen Saturation 99.3 97.9 Shayan Test ACCEPTAB ACCEPTAB Arterial Blood Gas Puncture Site Left Radial Right Radial Arterial Blood Carboxyhemoglobin 0.1 0.6 Arterial Blood Methemoglobin 0.3 0.3 Blood Gas A-a O2 Differential 433.4 H 227.7 H Oxyhemoglobin Percent 98.9 97.0 Total Hemoglobin 14.3 13.6 Blood Gas Temperature 37.0 37.0 Blood Gas Respiration Rate 16.0 16.0 Blood Gas Actual Respiration Rate 32 22 Blood Gas Modality VENT - AC VENT - AC FiO2 100.0 55.0 Blood Gas Tidal Volume 400.0 400.0 Blood Gas Low PEEP Setting 5.0 5.0 Blood Gas Critical Value Read Back GRANT RENO RN Blood Gas Notified Whom STEPHAN ASKEW Blood Gas Notified Time 09/20/2016 7:24:18 PM 09/21/2016 8:28:24 AM White Blood Count 7.1 # Red Blood Count 4.02 L Hemoglobin 13.4 Hematocrit 42.8 Mean Corpuscular Volume 106.5 H Mean Corpuscular Hemoglobin 33.3 H Mean Corpuscular Hemoglobin Concent 31.3 L Red Cell Distribution Width 14.6 H Platelet Count 96 L Mean Platelet Volume 12.7 H Neutrophils % 40.0 Band Neutrophils % 21.0 H Lymphocytes % 3.0 L Monocytes % 31.0 H Eosinophils % Myelocytes % 5.0 H Neutrophils # 2.8 Lymphocytes # 0.2 L Monocytes # 2.2 H Eosinophils # Myelocytes # 0.4 Differential Comment MANUAL DIFF Sodium Level 143 Potassium Level 4.7 Chloride Level 116 H Carbon Dioxide Level 17 L Anion Gap 15 Blood Urea Nitrogen 68 H Creatinine 2.97 #H Glucose Level 127 Hemoglobin A1c 5.6 Lactic Acid Level 6.5 *H Calcium Level 7.3 L Phosphorus Level 6.4 #H Magnesium Level 1.9 Total Bilirubin 2.5 H Direct Bilirubin 0.00 Indirect Bilirubin 2.5 H Aspartate Amino Transf (AST/SGOT) 619 H Alanine Aminotransferase (ALT/SGPT) 382 H Alkaline Phosphatase 89 Troponin I 0.401 *H Total Protein 5.1 L Albumin 2.4 L Globulin 2.70 Albumin/Globulin Ratio 0.88 Free Thyroxine 1.05 Total Triiodothyronine 0.30 L Digoxin Level 1.5 # Test 09/21/16 14:00 Blood Gas Specimen Source Blood arterial Arterial Blood Date Drawn 09/21/2016 2:20:30 PM Arterial Blood pH (Temp corrected) 7.049 *L Arterial Blood pCO2 (Temp correct) 56.1 H Arterial Blood pO2 (Temp corrected) 30.3 *L Arterial Blood HCO3 15.1 L Arterial Blood Base Excess -15.4 L Arterial Blood Oxygen Saturation 54.0 L Shayan Test ACCEPTAB Arterial Blood Gas Puncture Site Right Radial Arterial Blood Carboxyhemoglobin 0.8 Arterial Blood Methemoglobin 0.1 Blood Gas A-a O2 Differential 372.1 H Oxyhemoglobin Percent 53.5 L Total Hemoglobin 12.9 Blood Gas Temperature 37.0 Blood Gas Respiration Rate 16.0 Blood Gas Actual Respiration Rate 18 Blood Gas Modality VENT - AC FiO2 65.0 Blood Gas Tidal Volume 400.0 Blood Gas Low PEEP Setting 5.0 Blood Gas Critical Value Read Back Y PATRICK RN Blood Gas Notified Whom KARLID Blood Gas Notified Time 09/21/2016 2:39:28 PM Medications Medications Current Medications Ondansetron HCl (Zofran Inj) 4 mg Q6H PRN IV NAUSEA AND/OR VOMITING; Start 09/19 at 01:30 Lorazepam (Ativan) 0.5 mg Q6H PRN IV ANXIETY Last administered on 09/20/16 17: 58; Admin Dose 0.5 MG; Start 09/19/16 at 11:00 Digoxin (Digoxin) 250 mcg DAILY@13 IV Last administered on 09/21/16 12:58; Admin Dose 250 MCG; Start 09/19/16 at 20:00 Hydralazine HCl 10 mg 10 mg Q4H PRN IV SBP>150; Start 09/19/16 at 20:30 Norepinephrine 16 mg/Dextrose 500 ml @ 0 mls/hr TITRATE IV Last administered on 09/21/16 08:14; Admin Dose 56.25 MLS/HR; Start 09/21/16 at 07:00 Cefepime HCl 50 ml @ 100 mls/hr Q24H IVPB Last administered on 09/20/16 18:30 ; Admin Dose 100 MLS/HR; Start 09/20/16 at 18:30 Midazolam HCl 50 ml @ 1 mls/hr TITRATE IV Last administered on 09/21/16 13:00 ; Admin Dose 8 MLS/HR; Start 09/20/16 at 18:00 Fentanyl (Sublimaze) 100 ml @ 2.5 mls/hr TITRATE PRN IV SEDATION Last administered on 09/20/16 21:08; Admin Dose 2.5 MLS/HR; Start 09/20/16 at 20:00 Acetaminophen 650 mg 650 mg Q4H PRN GTB PAIN AND OR ELEVATED TEMP Last administered on 09/21/16 05:44; Admin Dose 650 MG; Start 09/21/16 at 04:00 Vasopressin 60 unit/Dextrose 60 ml @ 1.2 mls/hr Q12H IV ; Start 09/21/16 at 06: 00 Sodium Bicarbonate 150 meq/Dextrose 1,050 ml @ 100 mls/hr [id number] IV Last administered on 09/21/16 10:19; Admin Dose 100 MLS/HR; Start 09/21/16 at 08:57 Phenylephrine HCl/ Dextrose (Terell-Syneph/D5W) 500 ml @ 37.5 mls/hr TITRATE IV Last administered on 09/21/16 14:43; Admin Dose 112.5 MLS/HR; Start 09/21/16 at 09:30 BRIGIDA KELLY MD September 21, 2016 16:36
[2016-09-21] MEDS ORDERED: LIDOCAINE 1% (MPF) 5 ML VIAL SC ONE (17:00)
[2016-09-21] MEDS ORDERED: SOD CHLORIDE 0.9% 250 ML IV ONE (18:00)
[2016-09-21] MEDS: MEROPENEM 500 MG/100 ML (PMX) 100 ML IVPB SCH (20:20)
[2016-09-21] MEDS ORDERED: MEROPENEM 2 GM in SOD CHLORIDE 0.9% 100 ML IVPB SCH (21:00)
[2016-09-21] MEDS ORDERED: ALBUMIN HUMAN 25% 100 ML IV ONE (22:00)
[2016-09-21] MEDS ORDERED: FUROSEMIDE 40 MG INJ IV ONE (23:00)
[2016-09-22] VITALS (40 sets, daily range): BP systolic 54–141; BP diastolic 30–128; PULSE 46–100; RESP 16–46
[2016-09-22] MEDS: LEVALBUTEROL (HFA) 15 GM INHALER INH SCH ×2 (01:18→09:11)
--- NOTE | 2016-09-22 01:47 | CONS ---
DATE OF ADMISSION: 09/18/2016 DATE OF CONSULTATION: 09/21/2016 NEPHROLOGY CONSULTATION REFERRING PHYSICIAN: Dr. Bryn Hugo REASON FOR ADMISSION: Anuric acute kidney injury, with 0 urine output, severe metabolic acidosis on bicarbonate drip. HISTORY OF PRESENT ILLNESS: This is a 76-year-old female with a past medical history of dementia, a trial fibrillation, history of previous pacemaker placement, hypertension, ischemic cardiomyopathy w ith ejection fraction of 25%. The patient presented with acute hypoxic respiratory failure and shoc k liver. The patient has been treated with IV antibiotics. The patient did not improve. She mariya nues to deteriorate and today she had 0 urine output since the afternoon. The patient had urine out put of 520 mL yesterday. The patient is currently on 3 pressors, maximized, with a systolic blood p ressure in the 80s to 90s. Currently she has been also started on a bicarbonate drip with 3 amps of sodium bicarbonate due to the severe metabolic acidosis and the pH of 7.09. Renal has been consult ed because of anuria and acute kidney injury with a BUN of 68, creatinine of 2.97. Her lactic acid is 6.5. She is acidotic with a bicarbonate of 7. Currently, she is intubated on mechanical ventila tor. REVIEW OF SYSTEMS: Unable to obtain since the patient is currently intubated on ventilator. PAST MEDICAL HISTORY: As per HPI. ALLERGIES: NO KNOWN DRUG ALLERGIES. SOCIAL HISTORY: The patient lives with the family. No smoking, alcohol or recreational drug use. FAMILY HISTORY: Noncontributory. PHYSICAL EXAMINATION: VITAL SIGNS: Temperature 98.8, heart rate 87, respiration 19, blood pressure 106/48, saturation 95% on FIO2 of 80% on mechanical ventilator. GENERAL: The patient is currently sedated, intubated on ventilator. HEENT: ET tube in place, site is clear. No erythema, no discharge. NECK: Supple, no jugular venous distention up to the mid neck. LUNGS: Bibasilar crackles present up to the mid lung zones. HEART: S1, S2, tachycardia, no murmur. ABDOMEN: Soft, distended, nontender. Bowel sounds are hypoactive. EXTREMITIES: 1 to 2+ pitting edema diffusely, edematous all over the body. NEUROLOGICAL: Uncooperative for exam. PSYCHIATRIC: Uncooperative for exam. LABORATORY DATA/DIAGNOSTIC IMAGING: Sodium 143, potassium 4.7, chloride 116, bicarbonate 17, BUN 68, creatinine 2.9, glucose 127. Hemog lobin A1c 5.6. Lactic acid 6.5, albumin 2.4. LFTs are slightly elevated in the 200s and 600s. PT 13.6, PTT 32, INR 1.04. WBC 7.1, hemoglobin 13.4, platelet count 96. IMPRESSION: This is a 76-year-old female who is currently in acute respiratory failure, intubated o n ventilator, possibly secondary to sepsis. Currently on 3 pressors. The patient is in septic shoc k with 3 pressors maximized. Today her urine output was 0 mL in the last 12 hours and renal has bee n consulted for anuric acute renal failure. 1. Acute renal failure with severe metabolic acidosis secondary to septic shock. 2. Septic shock with multiorgan dysfunction. 3. Acute encephalopathy. 4. Ischemic cardiomyopathy with ejection fraction 20% to 25%. 5. Right lower extremity ischemia. 6. Atrial fibrillation with rapid ventricular rate. 7. Shock liver secondary to septic shock. 8. Thrombocytopenia. 9. Extended-spectrum beta-lactamase urinary tract infection. PLAN: Thank you Dr. Bryn Hugo for this consultation. 1. The patient is currently critically ill with septic shock on 3 pressors maximized. She is curre ntly getting IV antibiotics for her ESBL Escherichia coli urinary tract infection. The patient is s everely acidotic. I will continue the patient on sodium bicarbonate drip with 3 amps of sodium bica rbonate to run at 100 mL per hour. 2. The patient has not had any urine output in the last 12 hours, so I will give albumin 25% at 100 mL IV x1 followed up by NS 500 mL IV bolus followed up by Lasix 40 mg IV x1. 3. IV antibiotics. Meropenem has been continued for ESBL Escherichia coli urinary tract infection. 4. The patient is currently intubated on a ventilator with 3 pressors for septic shock. She is cur rently critically ill. Her prognosis is very poor. I had a discussion with the family at bedside. They wanted to try medications. If no improvement by tomorrow morning, they are also considering t o have hemodialysis if the patient does not improve from her renal failure by tomorrow morning. 5. The patient is currently seen in the ICU. The communication orders are communicated with the U nurse. She is currently on 3 pressors maximized. We will continue to follow this patient along w ith the primary care service and respiratory service. Total time spent in this patient's evaluation, making assessment and plan, communicating with the abdirashid bella's daughter at bedside and communicating with the ICU nursing staff took more than 90 minutes. Dictated By: NISHANT MARTINEZ MD, KP/SHANNON Conf#: [id number] DID#: [id number]
[2016-09-22] MEDS: PHENYLephrine 80 MG in DEXTROSE 5% 492 ML IV SCH ×2 (03:12→08:07)
[2016-09-22] MEDS ORDERED: VANCOMYCIN 1 GM in NS 250 ML IVPB SCH (05:00)
[2016-09-22 05:13] LABS: URIC ACID 8.8 mg/dl (3.1-7.9)
[2016-09-22] MEDS: SODIUM BICARBONATE IV SCH (05:38)
[2016-09-22] MEDS: DEXTROSE 5% IV SCH (05:38)
[2016-09-22] MEDS: VASOPRESSIN 60 UNIT in DEXTROSE 5% 57 ML IV SCH (05:47)
--- NOTE | 2016-09-22 07:43 | RADRPT ---
PROCEDURE: US Renal CLINICAL INDICATION: Acute renal failure. TECHNIQUE: Multiple sonographic images of the kidneys and bladder were obtained. Evaluation of th e kidneys and bladder was performed as well with pineda scale and color and Doppler evaluation using a curved array transducer. The images were reviewed on a high-resolution PACS workstation. COMPARISON: No prior studies are available for comparison. FINDINGS: The right kidney measures 9.7 cm. The left kidney measures 8.5 cm. Borderline small kidneys with echogenic parenchyma bilaterally. No significant color flow is seen over the left kidney. There is no mass, calculus, or obstructive uropathy. No perinephric fluid collection is seen. There is a Natarajan catheter in the urinary bladder. Incidental note is made of a left pleural effusion and cholelithiasis. IMPRESSION: 1. Borderline size kidneys with echogenic parenchyma suggesting medical renal disease. 2. Left pleural effusion. 3. Incidental visualization of cholelithiasis. RPTAT: [facility] Physician Pablo Date Time Electronically viewed and signed by Physician Pablo on 09/22/2016 07:42 /
[2016-09-22] MEDS: MEROPENEM 500 MG/100 ML (PMX) 100 ML IVPB SCH (08:30)
[2016-09-22] MEDS ORDERED: DOPamine-D5W 1.6 MG/ML 250 ML IV SCH (09:30)
--- NOTE | 2016-09-22 10:08 | CONS ---
Date/Time of Note Date/Time of Note DATE: 09/22/16 TIME: 10:05 Assessment/Plan Assessment/Plan Additional Assessment/Plan 1. Acute renal failure with severe metabolic acidosis secondary to septic shock. 2. Septic shock with multiorgan dysfunction. 3. Acute encephalopathy. 4. Ischemic cardiomyopathy with ejection fraction 20% to 25%. 5. Right lower extremity ischemia. 6. Atrial fibrillation with rapid ventricular rate. 7. Shock liver secondary to septic shock. 8. Thrombocytopenia. 9. Extended-spectrum beta-lactamase urinary tract infection. PLAN: critically ill Pt is on 4 pressors maximized for septic shock 10 cc urine out since AM pt is too unstable for renal replacement therapy, will inform to family and advise family to consider comfort care will sign off w Consultation Date/Type/Reason Admit Date/Time September 18, 2016 at 20:17 Initial Consult Date 09/21/16 Type of Consultation: NEPHROLOGY Reason for Consultation Acute anuric renal failure, Acute resp failure Referring Provider: BRIGIDA KELLY MD 24 HR Interval Summary Free Text/Dictation pt remains critically ill, on 4 pressors maximized, only 10 cc urine output Exam/Review of Systems Vital Signs Vitals Vital Signs Date Time Temp Pulse Resp B/P Pulse Ox O2 Delivery O2 Flow Rate FiO2 09/22/16 09:11 82 17 100 09/22/16 08:45 81/30 Mechanical Ventilator 09/22/16 08:00 98.3 09/22/16 07:37 94 09/20/16 16:50 6.0 Intake and Output 09/21/16 09/21/16 09/22/16 15:00 23:00 07:00 Intake Total 3752.50 ml 2416.90 ml 1455.75 ml Output Total 0 ml 35 ml 325 ml Balance 3752.50 ml 2381.90 ml 1130.75 ml Exam GENERAL: intubated, unresponsive, puffy HEENT: ET tube in place, site is clear. No erythema, no discharge. NECK: Supple, no jugular venous distention up to the mid neck. LUNGS: Bibasilar crackles present up to the mid lung zones. HEART: S1, S2, tachycardia, no murmur. ABDOMEN: Soft, distended, nontender. Bowel sounds are hypoactive. EXTREMITIES: 1 to 2+ pitting edema diffusely, edematous all over the body. NEUROLOGICAL: Uncooperative for exam. PSYCHIATRIC: Uncooperative for exam. Results Result Diagram: 09/21/16 0525 09/21/16 0525 Results 24 hrs Laboratory Tests Test 09/21/16 14:00 09/21/16 17:50 09/22/16 04:00 09/22/16 05:00 Blood Gas Specimen Source Blood arterial Arterial Blood Date Drawn 09/21/2016 2:20:30 PM Arterial Blood pH (Temp corrected) 7.049 *L Arterial Blood pCO2 (Temp correct) 56.1 H Arterial Blood pO2 (Temp corrected) 30.3 *L Arterial Blood HCO3 15.1 L Arterial Blood Base Excess -15.4 L Arterial Blood Oxygen Saturation 54.0 L Shayan Test ACCEPTAB Arterial Blood Gas Puncture Site Right Radial Arterial Blood Carboxyhemoglobin 0.8 Arterial Blood Methemoglobin 0.1 Blood Gas A-a O2 Differential 372.1 H Oxyhemoglobin Percent 53.5 L Total Hemoglobin 12.9 Blood Gas Temperature 37.0 Blood Gas Respiration Rate 16.0 Blood Gas Actual Respiration Rate 18 Blood Gas Modality VENT - AC FiO2 65.0 Blood Gas Tidal Volume 400.0 Blood Gas Low PEEP Setting 5.0 Blood Gas Critical Value Read Back Y NGUYEN RN Blood Gas Notified Whom JLD Blood Gas Notified Time 09/21/2016 2:39:28 PM Urine Random Creatinine 119.47 Urine Random Sodium 20 L Uric Acid 8.8 H Creatine Kinase 7630 H Digoxin Level 2.4 #*H Ammonia 190 H Medications Medications Current Medications Ondansetron HCl (Zofran Inj) 4 mg Q6H PRN IV NAUSEA AND/OR VOMITING; Start 09/19 at 01:30 Lorazepam (Ativan) 0.5 mg Q6H PRN IV ANXIETY Last administered on 09/20/16 17: 58; Admin Dose 0.5 MG; Start 09/19/16 at 11:00 Hydralazine HCl 10 mg 10 mg Q4H PRN IV SBP>150; Start 09/19/16 at 20:30 Norepinephrine 16 mg/Dextrose 500 ml @ 0 mls/hr TITRATE IV Last administered on 09/22/16 08:40; Admin Dose 56.25 MLS/HR; Start 09/21/16 at 07:00 Midazolam HCl 50 ml @ 1 mls/hr TITRATE IV Last administered on 09/21/16 13:00 ; Admin Dose 8 MLS/HR; Start 09/20/16 at 18:00 Fentanyl (Sublimaze) 100 ml @ 2.5 mls/hr TITRATE PRN IV SEDATION Last administered on 09/20/16 21:08; Admin Dose 2.5 MLS/HR; Start 09/20/16 at 20:00 Acetaminophen 650 mg 650 mg Q4H PRN GTB PAIN AND OR ELEVATED TEMP Last administered on 09/21/16 05:44; Admin Dose 650 MG; Start 09/21/16 at 04:00 Vasopressin 60 unit/Dextrose 60 ml @ 1.2 mls/hr Q12H IV Last administered on 05:47; Admin Dose 2.4 MLS/HR; Start 09/21/16 at 06:00 Sodium Bicarbonate 150 meq/Dextrose 1,050 ml @ 100 mls/hr [id number] IV Last administered on 09/22/16 05:38; Admin Dose 100 MLS/HR; Start 09/21/16 at 08:57 Phenylephrine HCl 80 mg/Dextrose 500 ml @ 37.5 mls/hr TITRATE IV Last administered on 09/22/16 08:07; Admin Dose 112.5 MLS/HR; Start 09/21/16 at 09: 30 Meropenem 100 ml @ 100 mls/hr Q12 IVPB Last administered on 09/22/16 08:30; Admin Dose 100 MLS/HR; Start 09/21/16 at 21:00 Dopamine HCl/ Dextrose 250 ml @ 4.973 mls/ hr TITRATE IV Last administered on 09/22/16 09:38; Admin Dose 37.294 MLS/HR; Start 09/22/16 at 09:30 NISHANT MARTINEZ MD September 22, 2016 10:08
--- NOTE | 2016-09-22 10:13 | RADRPT ---
PROCEDURE: XR Chest. CLINICAL INDICATION: Pneumonia; CHF. TECHNIQUE: Single frontal view of the chest was obtained. COMPARISON: Chest x-ray 09/21/2016. FINDINGS: The soft tissues are normal. There are degenerative osteophytes in the thoracic spine. The bony el ements are rarefied. The heart is enlarged. The cardiomediastinal silhouette and hilar structures are normal. The pulmonary vasculature is increased. There are vascular calcifications in the aortic arch. There are asymmetric perihilar infiltrates more extensive in the right lung than left which h ave increased when compared to the prior exam. There are plate-like densities consistent with atele ctasis or scarring in the right lower lobe and left lower lung field. There is a single chamber car diac pacemaker with electrode lead projecting at the base of the right ventricle. An endotracheal t ube is in place positioned with its distal tip 2.5 cm superior to the katy. An NG tube is in plac e. The costophrenic angles are normal. IMPRESSION: 1. Cardiomegaly with congestive heart failure an asymmetric interstitial pulmonary edema greater in the right lung than left. Plate-like densities consistent with atelectasis or scarring in the right and left lower lung black. 2. There are bilateral pleural effusions. 3. Single chamber cardiac pacemaker. 4. Atherosclerotic vascular disease. 5. Satisfactory positioning of the endotracheal tube with its distal tip 2.5 cm superior to the car janeen. 6. Satisfactory positioning of the NG tube distal to the GE junction. 7. Spondylosis of the thoracic spine. RPTAT:AAJJ Physician Niki Date Time Electronically viewed and signed by Physician Niki on 09/22/2016 10:13 ARDEN/
--- NOTE | 2016-09-22 10:50 | RADRPT ---
PROCEDURE: XR Abdomen. CLINICAL INDICATION: Assess tube placement. TECHNIQUE: AP abdomen x-ray. COMPARISON: None. FINDINGS: There is a nonspecific bowel gas pattern with no evidence of a mechanical bowel obstruction. Air is identified in the colon and small bowel. There are degenerative osteophytes in the lumbar spine. The bones are rarefied. The heart is enlarged. The left diaphragm is obscured. An NG tube is well positioned distal to the GE junction. A central line enters through the right inguinal area with it s tip at the lower border of the right SI joint. There is a dystrophic calcification in the right h ip. IMPRESSION: 1. No evidence of a mechanical bowel obstruction. 2. Vascular catheter entering from right inguinal approach with its tip in the right upper third of the pelvis. 3. Satisfactory positioning of an NG tube. 4. Osteoarthritis of the lumbar spine. RPTAT:AAJJ Physician Niki Date Time Electronically viewed and signed by Physician Niki on 09/22/2016 10:49 ARDEN/
--- NOTE | 2016-09-22 11:33 | CONS ---
Date/Time of Note Date/Time of Note DATE: 09/22/16 TIME: 11:30 Consult Date/Type/Reason Admit Date/Time September 18, 2016 at 20:17 Initial Consult Date 09/20/16 Type of Consultation: Pulmonary ICU Ordering Provider: BRIGIDA KELLY MD Subjective Rapid deterioration this morning bradycardia and hypotension Contacted family discussed poor prognosis and patient's daughter agrees to no further resuscitation. Objective Vital Signs Date Time Temp Pulse Resp B/P Pulse Ox O2 Delivery O2 Flow Rate FiO2 09/22/16 10:00 46 64/44 Mechanical Ventilator 09/22/16 09:11 17 100 09/22/16 08:00 98.3 09/22/16 07:37 94 09/20/16 16:50 6.0 Intake and Output 09/21/16 09/21/16 09/22/16 15:00 23:00 07:00 Intake Total 3752.50 ml 2416.90 ml 1455.75 ml Output Total 0 ml 35 ml 325 ml Balance 3752.50 ml 2381.90 ml 1130.75 ml Exam GENERAL: Pupils fixed and dilated VITAL SIGNS: per chart NECK: Supple. No JVD or lymphadenopathy. CARDIAC EXAM: No heart sounds CHEST: Breath sounds with mechanical ventilation ABDOMEN: Soft, nontender. No guarding or rebound. EXTREMITIES: No cyanosis, clubbing or edema. NEUROLOGIC: Unresponsive Results/Medications Result Diagram: 09/21/16 0525 09/21/16 0525 Results 24 hrs Laboratory Tests Test 09/21/16 14:00 09/21/16 17:50 09/22/16 04:00 09/22/16 05:00 Blood Gas Specimen Source Blood arterial Arterial Blood Date Drawn 09/21/2016 2:20:30 PM Arterial Blood pH (Temp corrected) 7.049 *L Arterial Blood pCO2 (Temp correct) 56.1 H Arterial Blood pO2 (Temp corrected) 30.3 *L Arterial Blood HCO3 15.1 L Arterial Blood Base Excess -15.4 L Arterial Blood Oxygen Saturation 54.0 L Shayan Test ACCEPTAB Arterial Blood Gas Puncture Site Right Radial Arterial Blood Carboxyhemoglobin 0.8 Arterial Blood Methemoglobin 0.1 Blood Gas A-a O2 Differential 372.1 H Oxyhemoglobin Percent 53.5 L Total Hemoglobin 12.9 Blood Gas Temperature 37.0 Blood Gas Respiration Rate 16.0 Blood Gas Actual Respiration Rate 18 Blood Gas Modality VENT - AC FiO2 65.0 Blood Gas Tidal Volume 400.0 Blood Gas Low PEEP Setting 5.0 Blood Gas Critical Value Read Back Y PATRICK RN Blood Gas Notified Whom JLD Blood Gas Notified Time 09/21/2016 2:39:28 PM Urine Random Creatinine 119.47 Urine Random Sodium 20 L Uric Acid 8.8 H Creatine Kinase 7630 H Digoxin Level 2.4 #*H Ammonia 190 H Medications Current Medications Ondansetron HCl (Zofran Inj) 4 mg Q6H PRN IV NAUSEA AND/OR VOMITING; Start 09/19 at 01:30 Lorazepam (Ativan) 0.5 mg Q6H PRN IV ANXIETY Last administered on 09/20/16 17: 58; Admin Dose 0.5 MG; Start 09/19/16 at 11:00 Hydralazine HCl 10 mg 10 mg Q4H PRN IV SBP>150; Start 09/19/16 at 20:30 Norepinephrine 16 mg/Dextrose 500 ml @ 0 mls/hr TITRATE IV Last administered on 09/22/16 08:40; Admin Dose 56.25 MLS/HR; Start 09/21/16 at 07:00 Midazolam HCl 50 ml @ 1 mls/hr TITRATE IV Last administered on 09/21/16 13:00 ; Admin Dose 8 MLS/HR; Start 09/20/16 at 18:00 Fentanyl (Sublimaze) 100 ml @ 2.5 mls/hr TITRATE PRN IV SEDATION Last administered on 09/20/16 21:08; Admin Dose 2.5 MLS/HR; Start 09/20/16 at 20:00 Acetaminophen 650 mg 650 mg Q4H PRN GTB PAIN AND OR ELEVATED TEMP Last administered on 09/21/16 05:44; Admin Dose 650 MG; Start 09/21/16 at 04:00 Vasopressin 60 unit/Dextrose 60 ml @ 1.2 mls/hr Q12H IV Last administered on 05:47; Admin Dose 2.4 MLS/HR; Start 09/21/16 at 06:00 Sodium Bicarbonate 150 meq/Dextrose 1,050 ml @ 100 mls/hr [id number] IV Last administered on 09/22/16 05:38; Admin Dose 100 MLS/HR; Start 09/21/16 at 08:57 Phenylephrine HCl 80 mg/Dextrose 500 ml @ 37.5 mls/hr TITRATE IV Last administered on 09/22/16 08:07; Admin Dose 112.5 MLS/HR; Start 09/21/16 at 09: 30 Meropenem 100 ml @ 100 mls/hr Q12 IVPB Last administered on 09/22/16 08:30; Admin Dose 100 MLS/HR; Start 09/21/16 at 21:00 Dopamine HCl/ Dextrose 250 ml @ 4.973 mls/ hr TITRATE IV Last administered on 09/22/16 09:38; Admin Dose 37.294 MLS/HR; Start 09/22/16 at 09:30 Assessment/Plan Chief Complaint/Hosp Course Assessment 1. Refractory septic shock patient now following aggressive resuscitation with multiple vasopressors 2. Family at bedside foster care social worker to assist family On examination Pupils fixed and dilated No heart sounds No spontaneous respiration No response to stimuli Patient at 10.11 a.m. Family present at bedside Problems: LIZBET PERRY MD, [facility] September 22, 2016 11:33
--- NOTE | 2016-09-22 19:29 | DES ---
DATE OF ADMISSION: 09/18/2016 DATE OF : 09/22/2016 DATE OF : 1940 DATE OF ADMISSION: 09/19/2016 DATE OF : 09/22/2016 PRIMARY CARE PHYSICIAN: Unknown. CONSULTANTS: Maki Ware MD; Harvinder Polo MD; Nishant Solis MD DIAGNOSIS ON ADMISSION: Acute hypoxic respiratory failure. DIAGNOSES ON DISCHARGE 1. Cardiac arrest. 2. Acute hypoxic respiratory failure. 3. Congestive heart failure. 4. Chronic hypertension. 5. Pacemaker status. HOSPITAL COURSE: This is an unfortunate, 76-year-old female admitted with shortness of breath, hypo emilia, respiratory failure, AFib, RVR. Unfortunately, she did not improve with therapy and went to [facility] intensive care unit. She continued to be in shock. Required pressors for blood pressure support, lethargic, intubated for hypoxia. Unfortunately, she still did continue to decline with renal fail ure, acidosis, and unfortunately, patient's lost her pulse rate today and family agreed to let her g o. I have spoken with the family in the last 2 days regarding the poor prognosis to give them a hea ds up. EF found to be 25%, AFib, RVR. She had mottling of her right lower extremity, renal failure with a creatinine of 3, shock liver, thrombocytopenia, ESBL cystitis. Family was at bedside when the patie nt passed. Dictated By: BRIGIDA KELLY MD AC/NTS Conf#: [id number] DID#: [id number] CC: NISHANT SOLIS MD; HARVINDER POLO MD; MAKI WARE MD;*EndCC*
== END 2016-09-22 10:11 | disposition expired | DRG 871 ==
LOC: E/R 15:46 → MS4 20:17 → ICU 09-20 13:11
PROVIDERS: ADMIT Internal Medicine; ATTEND Internal Medicine
PROC: 5A1945Z Respiratory Ventilation, 24-96 Consecutive Hours (ICD-10-PCS; principal; 2016-09-20)
PROC: 0BH17EZ Insertion of Endotracheal Airway into Trachea, Via Natural or Artificial Opening (ICD-10-PCS; 2016-09-20)
DX: A41.9 Sepsis, unspecified organism (principal); I21.4 Non-ST elevation (NSTEMI) myocardial infarction; J96.01 Acute respiratory failure with hypoxia; K72.00 Acute and subacute hepatic failure without coma; R65.21 Severe sepsis with septic shock; G93.40 Encephalopathy, unspecified; I50.23 Acute on chronic systolic (congestive) heart failure; E87.0 Hyperosmolality and hypernatremia; I95.9 Hypotension, unspecified; R13.10 Dysphagia, unspecified; N17.9 Acute kidney failure, unspecified; E87.2 Acidosis; F05 Delirium due to known physiological condition; I46.9 Cardiac arrest, cause unspecified; N30.90 Cystitis, unspecified without hematuria; I25.5 Ischemic cardiomyopathy; I35.1 Nonrheumatic aortic (valve) insufficiency; I34.0 Nonrheumatic mitral (valve) insufficiency; I99.8 Other disorder of circulatory system; I48.2 Chronic atrial fibrillation; I10 Essential (primary) hypertension; I48.91 Unspecified atrial fibrillation; E86.1 Hypovolemia; E86.0 Dehydration; E87.6 Hypokalemia; D64.9 Anemia, unspecified; D69.6 Thrombocytopenia, unspecified; Z86.73 Personal history of transient ischemic attack (TIA), and cerebral infarction without residual deficits; Z95.0 Presence of cardiac pacemaker
CPT/HCPCS: 36415; 36600; 71010; 74000; 76775; 76937; 80053; 80061; 80162; 81001; 81003; 82140; 82306; 82550; 82607; 82803; 82962; 83036; 83605; 83735; 83880; 84100; 84155; 84300; 84439; 84443; 84480; 84484; 84560; 85025; 85610; 85730; 86703; 86706; 86803; 87040; 87070; 87081; 87086; 87340; 92526; 92610; 93005; 93306; 94002; 94003; 94640; 94660; 94664; 94770; 96374; 96375; J0282; J0692; J1265; J1630; J1650; J1940; J2060; J2185; J2270; J2370; J2405; J3010; J3370; J7030; J7040; J7042; J7050; J7060; J7070; P9047